=== PATIENT | female | born 1990 | race Caucasian/White ===

== ENCOUNTER → 2018-01-15 17:09 | Outpatient (CLI) | payer OTHER, SELFPAY ==
[2018-01-15 17:29] LABS: Absolute Lymphocyte Count 1.83 X10^3/ul (0.83-4.51); Absolute Neutrophil Count 7.3 X10^3/uL (2.0-7.7); Basophil# 0.02 X10^3/uL; Basophil% 0.2 % (0-1); Eosinophil# 0.07 X10^3/uL; Eosinophils% 0.7 % (0-5); Hematocrit 32.6 % (37-47); Hemoglobin 11.1 g/dl (12.0-15.0); Lymphocyte # 1.83 X10^3/ul (4.0); Lymphocyte % 18.3 % (19-41); Mean Corpuscular Hgb 29.8 pg (27.0-32.0); Mean Corpuscular Volume 87.4 fL (81-99); Mean Platelet Vol. 10.5 fl (6.2-12.0); Monocyte# 0.77 X10^3/uL; Monocyte% 7.7 % (0-10); Neutrophil # 7.28 X10^3/uL (2.7-7.7); Platelet Count 144 K/mm3 (150-450); RBC Distribution Width CV 12.4 % (11.6-14.6); Red Blood Count 3.73 M/mm3 (4.2-5.4)
[2018-01-15 17:31] LABS: POSITIVE COUNT NO; POSITIVE DIFFERENTIAL NO; POSITIVE MORPHOLOGY NO
[2018-01-15 19:08] LABS: HIV - WCH Non-Reactive (Nonreactive); Rubella IgG 149.3 IU/mL
[2018-01-15 20:07] LABS: Chlamydia Trachomatis by PCR Negative (Negative); Neisserai gonorrhoeae by PCR Negative (Negative); Probe Check PASS; Sample Adequacy Control PASS; Specimen Processing Control PASS
[2018-01-17 09:54] LABS: HEPATITIS B SURFACE AG Negative (Negative)
[2018-01-19 01:20] LABS: Rapid Plasmin Reagin (RPR) NONREACTIVE (NONREACTIVE)
== END ==
PROVIDERS: Visit Provider Obstetrics & Gynecology
DX: Z34.00 Encounter for supervision of normal first pregnancy, unspecified trimester (principal)
CPT/HCPCS: 85025; 86592; 86703; 86762; 86850; 86900; 87086; 87088; 87186; 87340; 87491; 87591

== ENCOUNTER → 2018-02-12 18:00 | Outpatient (CLI) | payer OTHER, SELFPAY | PROVIDERS: Visit Provider Obstetrics & Gynecology | DX: Z34.90 Encounter for supervision of normal pregnancy, unspecified, unspecified trimester (principal) | CPT/HCPCS: 87086; 87088; 87186 ==

== ENCOUNTER → 2018-04-09 16:22 | Outpatient (CLI) | payer OTHER, SELFPAY | PROVIDERS: Visit Provider Obstetrics & Gynecology | DX: Z34.90 Encounter for supervision of normal pregnancy, unspecified, unspecified trimester (principal) | CPT/HCPCS: 76805 ==

== ENCOUNTER → 2018-05-21 15:28 | Outpatient (CLI) | payer OTHER, SELFPAY ==
[2018-05-21 16:27] LABS: Absolute Lymphocyte Count 1.43 X10^3/ul (0.83-4.51); Absolute Neutrophil Count 8.4 X10^3/uL (2.0-7.7); Basophil# 0.01 X10^3/uL; Basophil% 0.1 % (0-1); Eosinophil# 0.07 X10^3/uL; Eosinophils% 0.7 % (0-5); Hematocrit 29.3 % (37-47); Hemoglobin 9.9 g/dl (12.0-15.0); Lymphocyte # 1.43 X10^3/ul (4.0); Lymphocyte % 13.3 % (19-41); Mean Corp Hgb Conc 33.8 g/gl (32-36); Mean Corpuscular Hgb 30.1 pg (27.0-32.0); Mean Corpuscular Volume 89.1 fL (81-99); Mean Platelet Vol. 9.5 fl (6.2-12.0); Monocyte# 0.79 X10^3/uL; Monocyte% 7.4 % (0-10); Neutrophil # 8.37 X10^3/uL (2.7-7.7); Neutrophil % 77.8 % (47-70); Platelet Count 151 K/mm3 (150-450); RBC Distribution Width CV 12.2 % (11.6-14.6); RBC Distribution Width SD 39.4 fl (35.1-43.9); Red Blood Count 3.29 M/mm3 (4.2-5.4); White Blood Count 10.7 K/mm3 (4.4-11.0)
[2018-05-21 16:29] LABS: POSITIVE COUNT NO; POSITIVE DIFFERENTIAL NO; POSITIVE MORPHOLOGY NO
[2018-05-21 16:59] LABS: Glucose Challenge Gest 1H 50g 101 mg/dL (70-140)
== END ==
PROVIDERS: Visit Provider Obstetrics & Gynecology
DX: Z34.00 Encounter for supervision of normal first pregnancy, unspecified trimester (principal)
CPT/HCPCS: 36415; 82950; 85025

== ENCOUNTER → 2018-06-18 19:38 | Outpatient (CLI) | payer OTHER, SELFPAY ==
[2018-06-18 20:55] LABS: Protein, Urine (Random) 63.3 mg/dL (<11.9); Protein:Creat Ratio 581 mg/g CRE (0-200)
== END ==
PROVIDERS: Referring Provider Obstetrics & Gynecology; Visit Provider Obstetrics & Gynecology
DX: O12.10 Gestational proteinuria, unspecified trimester (principal); Z3A.00 Weeks of gestation of pregnancy not specified
CPT/HCPCS: 82570; 84156

== ENCOUNTER → 2018-06-20 16:43 | Outpatient (CLI) | payer OTHER, SELFPAY | PROVIDERS: Referring Provider Obstetrics & Gynecology; Visit Provider Obstetrics & Gynecology | DX: Z34.90 Encounter for supervision of normal pregnancy, unspecified, unspecified trimester (principal) | CPT/HCPCS: 87086; 87088; 87186 ==

== ENCOUNTER → 2018-07-02 17:03 | Outpatient (CLI) | payer OTHER, SELFPAY ==
[2018-07-02 18:37] LABS: Protein, Urine (Random) 16.6 mg/dL (<11.9); Protein:Creat Ratio 94 mg/g CRE (0-200)
== END ==
PROVIDERS: Referring Provider Obstetrics & Gynecology; Visit Provider Obstetrics & Gynecology
DX: I10 Essential (primary) hypertension (principal)
CPT/HCPCS: 82570; 84156

== ENCOUNTER → 2018-08-03 18:12 | Outpatient (CLI) | payer OTHER, SELFPAY ==
[2018-08-03 16:23] VITALS: BMI 31.3
== END ==
PROVIDERS: Referring Provider Obstetrics & Gynecology; Visit Provider Obstetrics & Gynecology
DX: Z34.90 Encounter for supervision of normal pregnancy, unspecified, unspecified trimester (principal)
CPT/HCPCS: 87081

== ENCOUNTER 2018-08-13 02:30 | Inpatient (IN) | payer OTHER, SELFPAY ==
[2018-08-08 16:18] VITALS: BMI 31.3
[2018-08-13] MEDS: Lactated Ringers 1,000 ML 50 ML IV ×2 (03:20→11:06)
[2018-08-13 03:35] VITALS: BMI 31.1
[2018-08-13 03:47] LABS: Hematocrit 35.2 % (37-47); Hemoglobin 11.7 g/dl (12.0-15.0); Mean Corp Hgb Conc 33.2 g/gl (32-36); Mean Corpuscular Volume 87.1 fL (81-99); Mean Platelet Vol. 10.8 fl (6.2-12.0); Platelet Count 161 K/mm3 (150-450); RBC Distribution Width CV 13.7 % (11.6-14.6); RBC Distribution Width SD 42.3 fl (35.1-43.9); Red Blood Count 4.04 M/mm3 (4.2-5.4); White Blood Count 10.5 K/mm3 (4.4-11.0)
[2018-08-13 03:48] LABS: Scan Indicated on CBC? Y/N NO
--- NOTE | 2018-08-13 04:10 | PCM.HP.OB ---
- Problem List (1) SROM (spontaneous rupture of membranes) Status: Acute (2) Anemia affecting Status: Acute Qualifiers: (3) Status: Acute Qualifiers: Comment: genetic, carrier, and NTD screening declined (4) Asymptomatic bacteriuria during Status: Acute Comment: 3 positive cultures, recommend daily macrobid (5) Supervision of normal first Status: Acute Qualifiers: Comment: PRR PATY 08/27/18 gender surprise yadirao or joshua Klaus History Date of Admission: 08/13/18 Final PATY: 08/27/18 Gestational age: 38 Weeks and 0 Days History of this : This is a 27 year-old, at 38 weeks gestational age presents IAL with SROM clear fluid. she has had an uncomplicated and denies any vb and admits good fm. she has a history of infertility. Allergies No Known Allergies Allergy (Verified 08/13/18 03:32) Home Medications: Home Medications vitamin,calcium,ztyksqdk-jqtc-wzhgc acid tablet 1 tab PO QDAY 02/12/18 Nitrofurantoin Macrocrystal [Macrodantin] 1 tab PO DAILY 08/13/18 Smoking Status: Former smoker Alcohol: None Number of Fetus(es): 1 Heart Tracin moderate variability reactive no decels category I tracing TOCO Analysis: q 3-5 History Past Pregnancies: Past Pregnancies Delivery Date Name GA/Weeks Outcome Route Weight Gender Labor Length Anesthesia Delivery Location Provider FOB Labs: [facility] & Results 08/13/18 08/13/18 03:20 03:20 WBC 10.5 RBC 4.04 L Hgb 11.7 L Hct 35.2 L MCV 87.1 MCH 29.0 MCHC 33.2 RDW 13.7 RDW Differential 42.3 Plt Count 161 MPV 10.8 Blood Type Pending Antibody Screen Pending Course Did the patient receive Yes care? Labs Blood Type: A RH: POSITIVE RPR/VDRL/Syphilis Nonreactive Rubella status Immune HbSAg Negative Date Done: 01/15/18 Chlamydia Negative Gonorrhea Negative HIV/AIDS Non-Reactive Group B Strep: Negative Current Obstetrical History Gestational Diabetes No Incompetent Cervix No Infertility Yes: chlomid IUGR No Macrosomia No Hypertension/Pre-eclampsia No Placenta Previa/Abruption No PTL/PROM No Uterine anomaly No Oligohydramnios No Polyhydramnios No Multiple gestation No Past Medical History Asthma No Diabetes No Hypertension No Heart disease No Mitral valve prolapse No Neurologic/Seizure disorder/ No Migraines Kidney disease No Liver disease No Varicosities No Clotting disorders/Hx of DVT No Thyroid Dysfunction No Other medical diseases No Psychiatric disorders No Major trauma No Abnormal PAP smear No Sleep apnea No Mammogram in the last 2 years No Social History Marital Status: Alleged father Klaus Hx Smoking No Smoking Status Former smoker How long have you used pt denies substances (years)? What date/time did you last n/a use any of the above? Have you had any previous n/a inpatient or outpatient treatment Expected Infant Delivery Method: Spontaneous Vaginal Review of Systems Constitutional: Denies: Fever, Malaise Eyes: Denies: Blurred vision, Vision Change HEENT: Denies: Head Aches, Visual Changes Cardiovascular: Denies: Chest Pain, Palpitations Respiratory: Denies: Cough, Shortness of Breath, Wheezing Gastrointestinal: Reports: Abdominal Pain. Denies: Diarrhea, Nausea, Vomiting Genitourinary: Denies: Dysuria, Hematuria Gynecological: Reports: Vaginal discharge Musculoskeletal: Denies: Joint Pain, Muscle pain Skin: Denies: Lesions, Rash Neurological: Denies: Blurred vision, Focal weakness, Headaches Psychiatric: Denies: Anxiety, Depression Endocrine: Denies: Heat/ Cold Intolerance Hematologic/ Lymphatic: Denies: Easy Bruising, Easy Bleeding Physical Exam General: Alert, Cooperative, No apparent distress HEENT: Atraumatic, Normocephalic. Negative for: Thyromegaly, Lymphadenopathy Cardiovascular: Regular rate Lungs: Normal air movement Abdomen: Soft, Non Tender, Gravid Neurological: Deep Tendon Reflexes 2+/4 and Symmetrical, Neuro grossly intact. 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 Negative for: Vulvar lesions Estimated gestational size: Appropriate for gestational size Presentation: Cephalic Cervix Dilation (cm): 1.5 Station: -3 Effacement (%): 70 Assessment/Plan All Active Problems (Last Reviewed 08/08/18 @ 16:18 by Bethany Maurer) SROM (spontaneous rupture of membranes) (Acute) Anemia affecting (Acute) (Acute) Asymptomatic bacteriuria during (Acute) Supervision of normal first (Acute) Primary female infertility (Resolved) This is a 27 year-old, , at 38 weeks gestational age with SROM Patient presents IAL, plan expectant management for , pitocin PRN if needed. Pain management: minimal intervention desired. GBS negative. Management of any complications: none I have reviewed the [facility] and made any clinically relevant updates.
--- NOTE | 2018-08-13 04:13 | HP.PCM_ITS ---
- Problem List (1) SROM (spontaneous rupture of membranes) Status: Acute (2) Anemia affecting Status: Acute Qualifiers: (3) Status: Acute Qualifiers: Comment: genetic, carrier, and NTD screening declined (4) Asymptomatic bacteriuria during Status: Acute Comment: 3 positive cultures, recommend daily macrobid (5) Supervision of normal first Status: Acute Qualifiers: Comment: PRR PATY 08/27/18 gender surprise yadirao or joshua Klaus History Date of Admission: 08/13/18 Final PATY: 08/27/18 Gestational age: 38 Weeks and 0 Days History of this : This is a 27 year-old, at 38 weeks gestational age presents IAL with SROM clear fluid. she has had an uncomplicated and denies any vb and admits good fm. she has a history of infertility. Allergies No Known Allergies Allergy (Verified 08/13/18 03:32) Home Medications: Home Medications vitamin,calcium,hxfrzlsp-wyqg-gfglj acid tablet 1 tab PO QDAY 02/12/18 Nitrofurantoin Macrocrystal [Macrodantin] 1 tab PO DAILY 08/13/18 Smoking Status: Former smoker Alcohol: None Number of Fetus(es): 1 Heart Tracin moderate variability reactive no decels category I tracing TOCO Analysis: q 3-5 History Past Pregnancies: Past Pregnancies Delivery Date Name GA/Weeks Outcome Route Weight Gender Labor Length Anesthesia Delivery Location Provider FOB Labs: [facility] & Results 08/13/18 08/13/18 03:20 03:20 WBC 10.5 RBC 4.04 L Hgb 11.7 L Hct 35.2 L MCV 87.1 MCH 29.0 MCHC 33.2 RDW 13.7 RDW Differential 42.3 Plt Count 161 MPV 10.8 Blood Type Pending Antibody Screen Pending Course Did the patient receive Yes care? Labs Blood Type: A RH: POSITIVE RPR/VDRL/Syphilis Nonreactive Rubella status Immune HbSAg Negative Date Done: 01/15/18 Chlamydia Negative Gonorrhea Negative HIV/AIDS Non-Reactive Group B Strep: Negative Current Obstetrical History Gestational Diabetes No Incompetent Cervix No Infertility Yes: chlomid IUGR No Macrosomia No Hypertension/Pre-eclampsia No Placenta Previa/Abruption No PTL/PROM No Uterine anomaly No Oligohydramnios No Polyhydramnios No Multiple gestation No Past Medical History Asthma No Diabetes No Hypertension No Heart disease No Mitral valve prolapse No Neurologic/Seizure disorder/ No Migraines Kidney disease No Liver disease No Varicosities No Clotting disorders/Hx of DVT No Thyroid Dysfunction No Other medical diseases No Psychiatric disorders No Major trauma No Abnormal PAP smear No Sleep apnea No Mammogram in the last 2 years No Social History Marital Status: Alleged father Klaus Hx Smoking No Smoking Status Former smoker How long have you used pt denies substances (years)? What date/time did you last n/a use any of the above? Have you had any previous n/a inpatient or outpatient treatment Expected Infant Delivery Method: Spontaneous Vaginal Review of Systems Constitutional: Denies: Fever, Malaise Eyes: Denies: Blurred vision, Vision Change HEENT: Denies: Head Aches, Visual Changes Cardiovascular: Denies: Chest Pain, Palpitations Respiratory: Denies: Cough, Shortness of Breath, Wheezing Gastrointestinal: Reports: Abdominal Pain. Denies: Diarrhea, Nausea, Vomiting Genitourinary: Denies: Dysuria, Hematuria Gynecological: Reports: Vaginal discharge Musculoskeletal: Denies: Joint Pain, Muscle pain Skin: Denies: Lesions, Rash Neurological: Denies: Blurred vision, Focal weakness, Headaches Psychiatric: Denies: Anxiety, Depression Endocrine: Denies: Heat/ Cold Intolerance Hematologic/ Lymphatic: Denies: Easy Bruising, Easy Bleeding Physical Exam General: Alert, Cooperative, No apparent distress HEENT: Atraumatic, Normocephalic. Negative for: Thyromegaly, Lymphadenopathy Cardiovascular: Regular rate Lungs: Normal air movement Abdomen: Soft, Non Tender, Gravid Neurological: Deep Tendon Reflexes 2+/4 and Symmetrical, Neuro grossly intact. 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 Negative for: Vulvar lesions Estimated gestational size: Appropriate for gestational size Presentation: Cephalic Cervix Dilation (cm): 1.5 Station: -3 Effacement (%): 70 Assessment/Plan All Active Problems (Last Reviewed 08/08/18 @ 16:18 by Bethany Maurer) SROM (spontaneous rupture of membranes) (Acute) Anemia affecting (Acute) (Acute) Asymptomatic bacteriuria during (Acute) Supervision of normal first (Acute) Primary female infertility (Resolved) This is a 27 year-old, , at 38 weeks gestational age with SROM Patient presents IAL, plan expectant management for , pitocin PRN if needed. Pain management: minimal intervention desired. GBS negative. Management of any complications: none I have reviewed the [facility] and made any clinically relevant updates.
[2018-08-13] MEDS: Nalbuphine 10 MG/ML Ampul IV ×2 (12:06→15:02)
[2018-08-13] MEDS: Amnioinfusion- 0.9% NS 1,000 ML IV.SOLN. 500 ML INTRA-UTER ×2 (13:26→19:11)
[2018-08-13] MEDS: Oxytocin 30 units/NS 500 ml 30 UNITS/500 ML IV.SOLN 167 UNITS IV (20:31)
[2018-08-13] MEDS: Oxytocin 30 units/NS 500 ml 30 UNITS/500 ML IV.SOLN 334 UNITS IV (21:01)
[2018-08-13] MEDS: Methylergonovine 0.2 MG/ML Ampul IM (21:03)
[2018-08-13] MEDS: miSOPROStol 200 MCG Tablet 1000 MCG RECTAL (21:06)
[2018-08-13] MEDS: Carboprost Tromethamine 250 MCG/ML Ampul IM (21:06)
[2018-08-13] MEDS: Morphine 4 MG/ML Syringe IV (21:23)
--- NOTE | 2018-08-13 22:15 | PCM.OB.VAG ---
- Problem List (1) SROM (spontaneous rupture of membranes) Status: Acute (2) Anemia affecting Status: Acute Qualifiers: (3) Status: Acute Qualifiers: Comment: genetic, carrier, and NTD screening declined (4) Asymptomatic bacteriuria during Status: Acute Comment: 3 positive cultures, recommend daily macrobid (5) Supervision of normal first Status: Acute Qualifiers: Comment: PRR PATY 08/27/18 gender surprise milo or joshua Klaus Vaginal Delivery Maternal Presentation: Active Labor, Spontaneous Rupture of Membranes 27-year-old at 38 weeks presents with spontaneous rupture of membranes in active labor Amniotic Membrane Rupture Type: Spontaneous at home Amniotic Fluid Description: Clear Final PATY: 08/27/18 Gestational age: 38 Weeks and 0 Days Date of Procedure: 08/13/18 Pre-Operative Diagnosis: In active labor Post-Operative Diagnosis: Same plus recurrent severe heart rate decelerations and moderate PPH Surgery/ Procedure Performed: Vacuum Assisted Vaginal Delivery Type of Anesthesia: Local with 1% lidocaine, Pudendal block with 1% lidocaine Description of Procedure: Patient began pushing and delivered the head in the BRIGITTE presentation. Throughout labor she had periodic severe variable decelerations that were infrequent and managed with position changes and amnioinfusion. However when she was pushing she developed recurrent severe heart rate variable decelerations into the 50s lasting 60-100 seconds at a time and progressive decrease in variability therefore the decision was made to apply a vacuum to shorten the second stage of labor. That was noted to be at the +2 station and patient was pushing well and pelvis was found to be adequate so pudendal block was placed bilaterally after prepping with Betadine 10 cc of lidocaine after the initial spines were identified bilaterally and 1 cm medial and posterior the sacral spinous ligaments were injected with 10 cc of lidocaine and then the perineum was also injected with lidocaine directly. Vacuum was applied and holes were made 3 times with 3 pop offs but significant descent each time, the last pop-off was felt to be due to inability to maintain suction. After the 3 pop offs a right mediolateral episiotomy was cut to hasten delivery and then the 's head delivered atraumatically and a tight nuchal cord x1 was identified and easily reduced over the infant's head. The anterior and posterior shoulders delivered without complication followed by the rest of the and the infant was placed on the maternal abdomen. Delayed cord clamping was employed for approximately 60 seconds. Cord was clamped and cut and gentle traction was applied to the cord and the placenta delivered spontaneously immediately following it was noted to be intact with three-vessel cord. The perineum and vagina were inspected and noted to have a partial third-degree extension of the right medial lateral episiotomy. Patient encountered a moderate hemorrhage which was treated with bimanual uterine massage, Pitocin wide open, IM Methergine and Hemabate and rectal Cytotec. Laceration was repaired with 2-0 PDS reapproximating the anal sphincter capsule and 3-0 Vicryl repeat for the rest of the remaining laceration was repaired in the usual fashion. EBL was 800. Patient and infant tolerated delivery well. Presentation: BRIGITTE Placental Delivery Description: Spontaneous Placenta Disposition: [facility] Cord Vessel Description: 3 Vessels Nuchal Cord Compression: With compression Cord Entanglement: Around neck x 1, tight Drain: Cortes to straight drain Estimated Blood Loss: 800 A gender: Male Episiotomy Description: Right Mediolateral, Perineal Extension/lac, 3rd degree Medications given after delivery: IV Pitocin, IM Methergin, IM Hemabate Complications: - - Moderate hemorrhage
--- NOTE | 2018-08-13 22:21 | OP.PCM_ITS ---
- Problem List (1) SROM (spontaneous rupture of membranes) Status: Acute (2) Anemia affecting Status: Acute Qualifiers: (3) Status: Acute Qualifiers: Comment: genetic, carrier, and NTD screening declined (4) Asymptomatic bacteriuria during Status: Acute Comment: 3 positive cultures, recommend daily macrobid (5) Supervision of normal first Status: Acute Qualifiers: Comment: PRR PATY 08/27/18 gender surprise milo or joshua Lkaus Vaginal Delivery Maternal Presentation: Active Labor, Spontaneous Rupture of Membranes 27-year-old at 38 weeks presents with spontaneous rupture of membranes in active labor Amniotic Membrane Rupture Type: Spontaneous at home Amniotic Fluid Description: Clear Final PATY: 08/27/18 Gestational age: 38 Weeks and 0 Days Date of Procedure: 08/13/18 Pre-Operative Diagnosis: In active labor Post-Operative Diagnosis: Same plus recurrent severe heart rate decelerations and moderate PPH Surgery/ Procedure Performed: Vacuum Assisted Vaginal Delivery Type of Anesthesia: Local with 1% lidocaine, Pudendal block with 1% lidocaine Description of Procedure: Patient began pushing and delivered the head in the BRIGITTE presentation. Throughout labor she had periodic severe variable decelerations that were infrequent and managed with position changes and amnioinfusion. However when s he was pushing she developed recurrent severe heart rate variable decelerations into the 50s lasting 60-100 seconds at a time and progressive decrease in variability therefore the decision was made to apply a vacuum to shorten the second stage of labor. That was noted to be at the +2 station and patient was pushing well and pelvis was found to be adequate so pudendal block was placed bilaterally after prepping with Betadine 10 cc of lidocaine after the initial spines were identified bilaterally and 1 cm medial and posterior the sacral spinous ligaments were injected with 10 cc of lidocaine and then the perineum was also injected with lidocaine directly. Vacuum was applied and holes were made 3 times with 3 pop offs but significant descent each time, the last pop-off was felt to be due to inability to maintain suction. After the 3 pop offs a right mediolateral episiotomy was cut to hasten delivery and then the infant's head delivered atraumatically and a tight nuchal cord x1 was identified and easily reduced over the infant's head. The anterior and posterior shoulders delivered without complication followed by the rest of the and the was placed on the maternal abdomen. Delayed cord clamping was employed for approximately 60 seconds. Cord was clamped and cut and gentle traction was applied to the cord and the placenta delivered spontaneously immediately following it was noted to be intact with three-vessel cord. The perineum and vagina were inspected and noted to have a partial third-degree extension of the right medial lateral episiotomy. Patient encountered a moderate hemorrhage which was treated with bimanual uterine massage, Pitocin wide open, IM Methergine and Hemabate and rectal Cytotec. Laceration was repaired with 2-0 PDS reapproximating the anal sphincter capsule and 3-0 Vicryl repeat for the rest of the remaining laceration was repaired in the usual fashion. EBL was 800. Patient and tolerated delivery well. Presentation: BRIGITTE Placental Delivery Description: Spontaneous Placenta Disposition: [facility] Cord Vessel Description: 3 Vessels Nuchal Cord Compression: With compression Cord Entanglement: Around neck x 1, tight Drain: Cortes to straight drain Estimated Blood Loss: 800 Infant A gender: Male Episiotomy Description: Right Mediolateral, Perineal Extension/lac, 3rd degree Medications given after delivery: IV Pitocin, IM Methergin, IM Hemabate Complications: - - Moderate hemorrhage
[2018-08-13] MEDS: Senna/Docusate Sodium 1 Tablet PO (23:39)
[2018-08-13] MEDS: Naproxen 250 MG Tablet PO (23:40)
[2018-08-14 03:30] VITALS: BP 128/63; PULSE 99; RESP 14; TEMP 36.7
--- NOTE | 2018-08-14 07:40 | PCM.PN.OB ---
Patient Problems: Active and Suspected Problems (Last Reviewed 08/08/18 @ 16:18 by Bethany Maurer) SROM (spontaneous rupture of membranes) (Acute) Subjective: Doing well. No CP, SOB. - Physical Exam General: Alert, Oriented x3 Abdomen: Soft, Non Tender, - - FF below U Vital Signs Temp Pulse Resp BP 98.0 F 99 14 128/63 H 08/14/18 03:30 08/14/18 03:30 08/14/18 03:30 08/14/18 03:30 Oxygen Delivery Method Room Air Weight: 176 lb 3.2 oz Body Mass Index (BMI) 31.1 Intake and Output for Last 24 Hours 08/12/18 08/13/18 08/14/18 23:59 23:59 23:59 Intake Total 3468 / 3468 Output Total 1410 / 1410 300 / 300 Balance 2057 / 2057 -300 / -300 Medical Necessity - Tobacco Use Smoking Status: Former smoker Assessment/Plan All Active Problems (Last Reviewed 08/08/18 @ 16:18 by Bethany Maurer) SROM (spontaneous rupture of membranes) (Acute) Anemia affecting (Acute) (Acute) Asymptomatic bacteriuria during (Acute) Supervision of normal first (Acute) Primary female infertility (Resolved) VAVD PPD#1: Routine care. .
[2018-08-14 08:20] VITALS: BP 127/78; PULSE 88; RESP 16; TEMP 36.3; O2SAT 98
[2018-08-14] MEDS: Senna/Docusate Sodium 1 Tablet PO (08:49)
[2018-08-14] MEDS: Prenatal Vits Tablet 1 TABLET PO (08:49)
[2018-08-14] MEDS: Naproxen 250 MG Tablet PO ×2 (08:50→20:58)
[2018-08-14] MEDS: 0.9% Saline Lock 10 ML Syringe IV (10:15)
[2018-08-14 12:30] VITALS: BP 111/56; PULSE 88; RESP 18; TEMP 36.6; O2SAT 99
[2018-08-14] MEDS: Dibucaine 30 GM Tube 1 APPLIC TOPICAL (13:00)
[2018-08-14] MEDS: Hydrocortisone 2.5% Crm 1 APPLIC TOPICAL (13:01)
[2018-08-14 15:50] VITALS: BP 117/69; PULSE 105; RESP 14; TEMP 36.7; O2SAT 98
--- NOTE | 2018-08-14 16:25 | NURSING ---
pt currently using perineal ice pack and experiencing a decrease in discomfort
[2018-08-14 20:45] VITALS: BP 125/64; PULSE 97; RESP 16; TEMP 36.7; O2SAT 96
[2018-08-15 02:00] VITALS: BP 104/56; PULSE 74; RESP 16; TEMP 36.2; O2SAT 100
--- NOTE | 2018-08-15 08:11 | PCM.PN.OB ---
Patient Problems: Active and Suspected Problems (Last Reviewed 08/08/18 @ 16:18 by Bethany Maurer) SROM (spontaneous rupture of membranes) (Acute) Subjective: No CP, SOB. Doing well - Physical Exam General: Alert, Oriented x3 Abdomen: Soft, Non Tender, - - FF below U Vital Signs Temp Pulse Resp BP Pulse Ox 97.2 F L 74 16 104/56 L 100 08/15/18 02:00 08/15/18 02:00 08/15/18 02:00 08/15/18 02:00 08/15/18 02:00 Oxygen Delivery Method Room Air Weight: 176 lb 3.2 oz Body Mass Index (BMI) 31.1 Intake and Output for Last 24 Hours 08/13/18 08/14/18 08/15/18 23:59 23:59 23:59 Intake Total 3468 / 3468 Output Total 1410 / 1410 300 / 300 Balance 2057 / 2057 -300 / -300 Medical Necessity - Tobacco Use Smoking Status: Former smoker Assessment/Plan All Active Problems (Last Reviewed 08/08/18 @ 16:18 by Bethany Maurer) SROM (spontaneous rupture of membranes) (Acute) Anemia affecting (Acute) (Acute) Asymptomatic bacteriuria during (Acute) Supervision of normal first (Acute) Primary female infertility (Resolved) PPD #2: Routine care. . Plans home today.
--- NOTE | 2018-08-15 08:12 | PCM.DCVAG ---
Additional Instructions: If you experience any of the following, contact your healthcare provider. Bleeding that soaks a pad every hour for 2 hours Fever 100.4 or higher Unrelieved incision or abdominal pain Swelling, redness, discharge or bleeding from your incision or episiotomy site Your incision begins to separate Problems urinating (including inability to urinate or burning while urinating). Visual changes Severe headache Flu-like symptoms Pain or redness in one of both of your breasts Pain, warmth, tenderness or swelling in your legs, especially the calf area Frequent nausea and vomiting Symptoms of depression or anxiety If you experience any of the following, call 911 or go to the nearest Emergency Room. Chest pain Problems breathing Seizure activity Partial or complete paralysis of a body part, slurred speech, weakness or drooping of the face, or a sudden inability to walk or hold your balance Allergies/Adverse Reactions: Allergies No Known Allergies Allergy (Verified 08/13/18 03:32) Medications to take at Discharge vitamin,calcium,rhjiyknc-wwsb-dlqxd acid tablet 1 tab PO QDAY 02/12/18 Nitrofurantoin Macrocrystal [Macrodantin] 1 tab PO DAILY 08/13/18 Primary Care Physician: Care Physician,No Primary [Primary Care Provider] - Test Results: Test results from this visit will be discussed in further detail at your follow-up appointment, if applicable.
--- NOTE | 2018-08-15 08:13 | DCINST_ITS ---
Additional Instructions: If you experience any of the following, contact your healthcare provider. * Bleeding that soaks a pad every hour for 2 hours * Fever 100.4 or higher * Unrelieved incision or abdominal pain * Swelling, redness, discharge or bleeding from your incision or episiotomy site * Your incision begins to separate * Problems urinating (including inability to urinate or burning while urinating). * Visual changes * Severe headache * Flu-like symptoms * Pain or redness in one of both of your breasts * Pain, warmth, tenderness or swelling in your legs, especially the calf area * Frequent nausea and vomiting * Symptoms of depression or anxiety If you experience any of the following, call 911 or go to the nearest Emergency Room. * Chest pain * Problems breathing * Seizure activity * Partial or complete paralysis of a body part, slurred speech, weakness or drooping of the face, or a sudden inability to walk or hold your balance Allergies/Adverse Reactions: Allergies No Known Allergies Allergy (Verified 08/13/18 03:32) Medications to take at Discharge vitamin,calcium,akiqamwl-ptss-ybpon acid tablet 1 tab PO QDAY 02/12/18 Nitrofurantoin Macrocrystal [Macrodantin] 1 tab PO DAILY 08/13/18 Primary Care Physician: Care Physician,No Primary [Primary Care Provider] - Test Results: Test results from this visit will be discussed in further detail at your follow- up appointment, if applicable.
[2018-08-15] MEDS: Naproxen 250 MG Tablet PO (08:28)
[2018-08-15] MEDS: Prenatal Vits Tablet 1 TABLET PO (08:29)
[2018-08-15] MEDS: Senna/Docusate Sodium 1 Tablet PO (08:29)
[2018-08-15 10:18] VITALS: BP 122/72; PULSE 76; RESP 18; TEMP 36.1; O2SAT 99
--- OUTSIDE RECORDS SUMMARY | 2018-11-14 14:29 | XMS RPT_ITS ---
:1990 Author Organization [place] Support Name Relationship Address Phone [facility] Unavailable [address] + [place] [address] CHING PARDEEP Unavailable [address] + [place], [place] [id number] [place] [address] Un[address] + [place] [address] CHING PARDEEP Unavailable [address] + [place], [place] [id number] [place] [address] + [place] [address] CHING PARDEEP Unavailable [address] + [place], [place] [id number] [place] [address] + [place] [address] CHING PARDEEP Unavailable [address] + [place] [address] [facility] Unavailable [address] + [place] [address] CHING PARDEEP Unavailable [address] + [place] [address] [facility] Unavailable [address] + [place] [address] CHING PARDEEP Unavailable [address] + [place] [address] [facility] Unavailable [address] + [place] [address] CHING PARDEEP Unavailable [address] + [place] [address] [facility] Unavailable [address] + [place] [address] PARDEEP FLOWER Unavailable [address] + [place] [address] [facility] Unavailable [address] + [place] [address] PARDEEP FLOWER Unavailable [address] + [place] [address] [facility] Unavailable [address] + [place] [address] PARDEEP FLOWER Unavailable [address] + [place] [address] [facility] Unavailable [address] + [place] [address] PARDEEP FLOWER Unavailable [address] + [place] [address] [facility] Unavailable [address] + [place] [address] PARDEEP FLOWER Unavailable [address] + [place] [address] [facility] Unavailable [address] + [place] [address] PARDEEP FLOWER Unavailable [address] + [place] [address] [facility] Unavailable [address] + [place] [address] PARDEEP FLOWER Unavailable [address] + [place] [address] [facility] Unavailable [address] + [place] [address] PARDEEP FLOWER Unavailable [address] + [place] [address] [facility] Unavailable [address] + [place] [address] CHING, PARDEEP Unavailable [address] + [place] [address] [facility] Unavailable [address] + [place] [address] CHING, PARDEEP Unavailable [address] + [place] [address] [facility] Unavailable [address] + [place] [address] CHING, PARDEEP Unavailable [address] + [place] [address] [facility] Unavailable [address] + [place] [address] CHING, PARDEEP Unavailable [address] + [place] [address] [facility] Unavailable [address] + [place] [address] CHING, PARDEEP Unavailable [address] + [place] [address] [facility] Unavailable / + [place] [address] CHING PARDEEP Unavailable [address] + [place] [address] [facility] Unavailable / + [place] [address] CHING PARDEEP Unavailable [address] + [place] [address] [facility] Unavailable . +. [place] [address] CHING, PARDEEP Unavailable [address] + [place] [address] Care Team Providers Name Role Phone Alix Parra Attending Unavailable Primay Care Physicia, No Referring Unavailable Alix Parra Admitting Unavailable Alix Parra Attending Unavailable Primay Care Physicia, No Primary Care Unavailable Alix Parra Attending Unavailable Primay Care Physicia, No Referring Unavailable Primay Care Physicia, No Primary Care Unavailable Alix Parra Admitting Unavailable Marcanthony, Alix Attending Unavailable Primay Care Physicia, No Primary Care Unavailable Marcanthony, Alix Consulting Unavailable Marcanthony, Alix Admitting Unavailable [place], Marley Attending Unavailable Primay Care Physicia, No Primary Care Unavailable Marcanthony, Alix Consulting Unavailable Marcanthony, Alix Admitting Unavailable [place], Marley Attending Unavailable Primay Care Physicia, No Primary Care Unavailable Marcanthony, Alix Consulting Unavailable Marcanthony, Alix Attending Unavailable Marcanthony, Alix Referring Unavailable Primay Care Physicia, No Primary Care Unavailable Marcanthony, Alix Attending Unavailable Primay Care Physicia, No Referring Unavailable Primay Care Physicia, No Primary Care Unavailable Marcanthony, Ailx Attending Unavailable Primay Care Physicia, No Primary Care Unavailable Marcanthony, Alix Referring Unavailable Marcanthony, Alix Attending Unavailable Primay Care Physicia, No Referring Unavailable Primay Care Physicia, No Primary Care Unavailable Marcanthony, Alix Attending Unavailable Primay Care Physicia, No Primary Care Unavailable Marcanthony, Alix Referring Unavailable Marcanthony, Alix Attending Unavailable Primay Care Physicia, No Referring Unavailable Primay Care Physicia, No Primary Care Unavailable Marcanthony, Alix Attending Unavailable Primay Care Physicia, No Referring Unavailable Primay Care Physicia, No Primary Care Unavailable Marcanthony, Alix Attending Unavailable Marcanthony, Alix Referring Unavailable Primay Care Physicia, No Primary Care Unavailable Marcanthony, Alix Attending Unavailable Primay Care Physicia, No Referring Unavailable Marcanthony, Alix Attending Unavailable Primay Care Physicia, No Primary Care Unavailable Marcanthony, Alix Referring Unavailable Marcanthony, Alix Attending Unavailable Primay Care Physicia, No Referring Unavailable Marcanthony, Alix Attending Unavailable Marcanthony, Alix Referring Unavailable Primay Care Physicia, No Primary Care Unavailable Marcanthony, Alix Attending Unavailable Primay Care Physicia, No Referring Unavailable Marcanthony, Alix Attending Unavailable Marcanthony, Alix Referring Unavailable Primay Care Physicia, No Primary Care Unavailable Marcanthony, Alix Attending Unavailable Primay Care Physicia, No Referring Unavailable Marcanthony, Alix Attending Unavailable Primay Care Physicia, No Referring Unavailable Marcanthony, Alix Attending Unavailable Primay Care Physicia, No Primary Care Unavailable Marcanthony, [employer] Referring Unavailable PROBLEMS PROBLEMS DATE TYPE CONDITION / CODE ATTENDING STATUS SOURCE 08/04/2018 Unknown Z34.90 - Encounter Marcanthony, Active [place] for supervision of [facility] normal , Hospital unspecified, Repository unspecified trimester / Z34.90(ICD-10) 08/04/2018 Unknown O99.89 - Other Marcanthony, Active [place] specified diseases [facility] and conditions Hospital complicating Repository , childbirth and the puerperium / O99.89(ICD-10) 08/04/2018 Unknown R82.71 - Marcanthony, Active [place] Bacteriuria / [facility] R82.71(ICD-10) Hospital Repository 08/04/2018 Unknown O99.013 - Anemia Marcanthony, Active [place] complicating [facility] , third Hospital trimester / Repository O99.013(ICD-10) 08/04/2018 Unknown Z34.03 - Encounter Marcanthony, Active [place] for supervision of [facility] normal first Hospital , third Repository trimester / Z34.03(ICD-10) 08/04/2018 Unknown Z3A.36 - 36 weeks Marcanthony, Active [place] gestation of [facility] / Hospital Z3A.36(ICD-10) Repository 07/17/2018 Unknown Z3A.34 - 34 weeks Marcanthony, Active [place] gestation of [facility] / Hospital Z3A.34(ICD-10) Repository 07/02/2018 Unknown I10 - Essential Marcanthony, Active [place] (primary) [facility] hypertension / Hospital I10(ICD-10) Repository 07/02/2018 Unknown Z3A.32 - 32 weeks Marcanthony, Active [place] gestation of [facility] / Hospital Z3A.32(ICD-10) Repository 06/20/2018 Unknown R80.9 - Marcanthony, Active [place] Proteinuria, [facility] unspecified / Hospital R80.9(ICD-10) Repository 06/19/2018 Unknown O12.10 - Marcanthony, Active [place] Gestational [facility] proteinuria, Hospital unspecified Repository trimester / O12.10(ICD-10) 06/19/2018 Unknown Z23 - Encounter Marcanthony, Active [place] for immunization / [facility] Z23(ICD-10) Hospital Repository 06/19/2018 Unknown Z3A.30 - 30 weeks Marcanthony, Active [place] gestation of [facility] / Hospital Z3A.30(ICD-10) Repository 05/21/2018 Unknown Z34.02 - Encounter Marcantholeg, Active [place] for supervision of [facility] , second Repository trimester / Z34.02(ICD-10) 05/21/2018 Unknown Z3A.21 - 21 weeks Marcanthony, Active [place] gestation of [facility] / Hospital Z3A.21(ICD-10) Repository 05/21/2018 Unknown Z34.00 - Encounter Marcanthony, Active [place] for supervision of [facility] , Repository unspecified trimester / Z34.00(ICD-10) 03/12/2018 Unknown Z3A.16 - 16 weeks Marcanthony, Active [place] gestation of [facility] / Hospital Z3A.16(ICD-10) Repository 02/12/2018 Unknown Z34.01 - Encounter Bariantholeg, Active [place] for supervision of [facility] , first Repository trimester / Z34.01(ICD-10) 02/12/2018 Unknown Z3A.12 - 12 weeks Barianthony, Active [place] gestation of [facility] / Hospital Z3A.12(ICD-10) Repository PROCEDURES PROCEDURES No Procedure Records FoundRESULTS RESULTS DISCHARGE INSTRUCTION Observed: 08/15/2018 Status: F Source: JOSEL[place] 8:13 AM [facility] REPOSITORY [facility] Medical Records Department [address] [place] [id number] Instructions for Home/Discharge Instructions 08/15/18 0812 MR#: [id number] Acct: [id number] Name: GENARO FLOWER Rep #: [id number] : 1990 27 From: Marley Lechuga IT OPERATIONS MANAGERDolores PCP: Care Physician, No Primary Status: ADM IN Additional Instructions: If you experience any of the following, contact your healthcare provider. * Bleeding that soaks a pad every hour for 2 hours * Fever 100.4 or higher * Unrelieved incision or abdominal pain * Swelling, redness, discharge or bleeding from your incision or episiotomy site * Your incision begins to separate * Problems urinating (including inability to urinate or burning while urinating). * Visual changes * Severe headache * Flu-like symptoms * Pain or redness in one of both of your breasts * Pain, warmth, tenderness or swelling in your legs, especially the calf area * Frequent nausea and vomiting * Symptoms of depression or anxiety If you experience any of the following, call 911 or go to the nearest Emergency Room. * Chest pain * Problems breathing * Seizure activity * Partial or complete paralysis of a body part, slurred speech, weakness or drooping of the face, or a sudden inability to walk or hold your balance Allergies/Adverse Reactions: Allergies No Known Allergies Allergy (Verified 08/13/18 03:32) Medications to take at Discharge vitamin,calcium,jnwfjabk-jekz-acmxx acid tablet 1 tab PO QDAY 02/12/18 Nitrofurantoin Macrocrystal [Macrodantin] 1 tab PO DAILY 08/13/18 Primary Care Physician: Care Physician,No Primary [Primary Care Provider] - Test Results: Test results from this visit will be discussed in further detail at your follow-up appointment, if applicable. 08/15/18 08 <Electronically signed by Marley KENNEDY> Date Marley KENNEDY CC: No Primary Care Physician OPERATIVE REPORT Observed: 08/13/2018 Status: F Source: GRENOR[place] 10:21 PM [facility] REPOSITORY [facility] Medical Records Department [address] [place] [address] Operative Report 08/13/18 2215 MR#: [id number] Acct: [id number] Name: GENARO FLOWER Rep #: [id number] : 1990 27 From: Alix Parra MD PCP: Care Physician, No Primary Status: ADM IN Y Location: [id number] - Problem List (1) SROM (spontaneous rupture of membranes) Status: Acute (2) Anemia affecting Status: Acute Qualifiers: (3) Status: Acute Qualifiers: Comment: genetic, carrier, and NTD screening declined (4) Asymptomatic bacteriuria during Status: Acute Comment: 3 positive cultures, recommend daily macrobid (5) Supervision of normal first Status: Acute Qualifiers: Comment: PRR PATY 08/27/18 gender surprise milo or joshua Pardeep Vaginal Delivery Maternal Presentation: Active Labor, Spontaneous Rupture of Membranes 27-year-old at 38 weeks presents with spontaneous rupture of membranes in active labor Amniotic Membrane Rupture Type: Spontaneous at home Amniotic Fluid Description: Clear Final PATY: 08/27/18 Gestational age: 38 Weeks and 0 Days Date of Procedure: 08/13/18 Pre-Operative Diagnosis: In active labor Post-Operative Diagnosis: Same plus recurrent severe heart rate decelerations and moderate PPH Surgery/ Procedure Performed: Vacuum Assisted Vaginal Delivery Type of Anesthesia: Local with 1% lidocaine, Pudendal block with 1% lidocaine Description of Procedure: Patient began pushing and delivered the head in the BRIGITTE presentation. Throughout labor she had periodic severe variable decelerations that were infrequent and managed with position changes and amnioinfusion. However when she was pushing she developed recurrent severe heart rate variable decelerations into the 50s lasting 60-100 seconds at a time and progressive decrease in variability therefore the decision was made to apply a vacuum to shorten the second stage of labor. That was noted to be at the +2 station and patient was pushing well and pelvis was found to be adequate so pudendal block was placed bilaterally after prepping with Betadine 10 cc of lidocaine after the initial spines were identified bilaterally and 1 cm medial and posterior the sacral spinous ligaments were injected with 10 cc of lidocaine and then the perineum was also injected with lidocaine directly. Vacuum was applied and holes were made 3 times with 3 pop offs but significant descent each time, the last pop-off was felt to be due to inability to maintain suction. After the 3 pop offs a right mediolateral episiotomy was cut to hasten delivery and then the 's head delivered atraumatically and a tight nuchal cord x1 was identified and easily reduced over the 's head. The anterior and posterior shoulders delivered without complication followed by the rest of the infant and the was placed on the maternal abdomen. Delayed cord clamping was employed for approximately 60 seconds. Cord was clamped and cut and gentle traction was applied to the cord and the placenta delivered spontaneously immediately following it was noted to be intact with three-vessel cord. The perineum and vagina were inspected and noted to have a partial third-degree extension of the right medial lateral episiotomy. Patient encountered a moderate hemorrhage which was treated with bimanual uterine massage, Pitocin wide open, IM Methergine and Hemabate and rectal Cytotec. Laceration was repaired with 2-0 PDS reapproximating the anal sphincter capsule and 3-0 Vicryl repeat for the rest of the remaining laceration was repaired in the usual fashion. EBL was 800. Patient and infant tolerated delivery well. Presentation: BRIGITTE Placental Delivery Description: Spontaneous Placenta Disposition: [facility] Cord Vessel Description: 3 Vessels Nuchal Cord Compression: With compression Cord Entanglement: Around neck x 1, tight Drain: Cortes to straight drain Estimated Blood Loss: 800 Infant A gender: Male Episiotomy Description: Right Mediolateral, Perineal Extension/lac, 3rd degree Medications given after delivery: IV Pitocin, IM Methergin, IM Hemabate Complications: - - Moderate hemorrhage 08/13/182220 <Electronically signed by Alix Parra MD> Date Alix Parra MD CC: No Primary Care Physician; Alix Parra MD Signed HISTORY AND PHYSICAL Observed: 08/13/2018 Status: F Source: GRENORA EXAM 4:13 AM [facility] REPOSITORY [facility] Medical Records Department [address] [place] [address] History and Physical 08/13/18 0410 MR#: [id number] Acct: [id number] Name: GENARO FLOWER Kostas Rep #: [id number] : 1990 27 From: Alix Parra MD PCP: Care Physician, No Primary Status: ADM IN Y Location: [id number] - Problem List (1) SROM (spontaneous rupture of membranes) Status: Acute (2) Anemia affecting Status: Acute Qualifiers: (3) Status: Acute Qualifiers: Comment: genetic, carrier, and NTD screening declined (4) Asymptomatic bacteriuria during Status: Acute Comment: 3 positive cultures, recommend daily macrobid (5) Supervision of normal first Status: Acute Qualifiers: Comment: PRR PATY 08/27/18 gender surprise milo or joshua Pardeep History Date of Admission: 08/13/18 Final PATY: 08/27/18 Gestational age: 38 Weeks and 0 Days History of this : This is a 27 year-old, at 38 weeks gestational age presents IAL with SROM clear fluid. she has had an uncomplicated and denies any vb and admits good fm. she has a history of infertility. Allergies No Known Allergies Allergy (Verified 08/13/18 03:32) Home Medications: Home Medications vitamin,calcium,mhooywsz-gayb-eiutd acid tablet 1 tab PO QDAY 02/12/18 Nitrofurantoin Macrocrystal [Macrodantin] 1 tab PO DAILY 08/13/18 Smoking Status: Former smoker Alcohol: None Number of Fetus(es): 1 Heart Tracin moderate variability reactive no decels category I tracing TOCO Analysis: q 3-5 History Past Pregnancies: Past Pregnancies Delivery Name GA/Weeks Outcome Route WeiInfant GeLabor LenAnesthesiDelivery Provider FOB Date [facility] a Location Labs: Mom's Labs AND Results WBC 10.5 RBC 4.04 L Course Did the patient receive Yes care? Labs Blood Type: A Current Obstetrical History Gestational Diabetes No Incompetent Cervix No Infertility Yes: chlomid IUGR No Macrosomia No Hypertension/Pre-eclampsia No Placenta Previa/Abruption No PTL/PROM No Uterine anomaly No Oligohydramnios No Polyhydramnios No Multiple gestation No Past Medical History Asthma No Diabetes No Hypertension No Heart disease No Mitral valve prolapse No Neurologic/Seizure disorder/ No Migraines Kidney disease No Liver disease No Varicosities No Clotting disorders/Hx of DVT No Thyroid Dysfunction No Other medical diseases No Psychiatric disorders No Major trauma No Abnormal PAP smear No Sleep apnea No Mammogram in the last 2 years No Social History Marital Status: Alleged father Pardeep Hx Smoking No Smoking Status Former smoker How long have you used pt denies substances (years)? What date/time did you last n/a use any of the above? Have you had any previous n/a inpatient or outpatient treatment Expected Infant Delivery Method: Spontaneous Vaginal Review of Systems Constitutional: Denies: Fever, Malaise Eyes: Denies: Blurred vision, Vision Change HEENT: Denies: Head Aches, Visual Changes Cardiovascular: Denies: Chest Pain, Palpitations Respiratory: Denies: Cough, Shortness of Breath, Wheezing Gastrointestinal: Reports: Abdominal Pain. Denies: Diarrhea, Nausea, Vomiting Genitourinary: Denies: Dysuria, Hematuria Gynecological: Reports: Vaginal discharge Musculoskeletal: Denies: Joint Pain, Muscle pain Skin: Denies: Lesions, Rash Neurological: Denies: Blurred vision, Focal weakness, Headaches Psychiatric: Denies: Anxiety, Depression Endocrine: Denies: Heat/ Cold Intolerance Hematologic/ Lymphatic: Denies: Easy Bruising, Easy Bleeding Physical Exam General: Alert, Cooperative, No apparent distress HEENT: Atraumatic, Normocephalic. Negative for: Thyromegaly, Lymphadenopathy Cardiovascular: Regular rate Lungs: Normal air movement Abdomen: Soft, Non Tender, Gravid Neurological: Deep Tendon Reflexes 2+/4 and Symmetrical, Neuro grossly intact. Negative for: Clonus RESIDENTIAL SOLAR CONSULTANT: Normal external genitalia. Negative for: Vulvar lesions Estimated gestational size: Appropriate for gestational size Presentation: Cephalic Cervix Dilation (cm): 1.5 Station: -3 Effacement (%): 70 Assessment/Plan All Active Problems (Last Reviewed 08/08/18 @ 16:18 by Bethany Maurer) SROM (spontaneous rupture of membranes) (Acute) Anemia affecting (Acute) (Acute) Asymptomatic bacteriuria during (Acute) Supervision of normal first (Acute) Primary female infertility (Resolved) This is a 27 year-old, , at 38 weeks gestational age with SROM Patient presents IAL, plan expectant management for , pitocin PRN if needed. Pain management: minimal intervention desired. GBS negative. Management of any complications: none I have reviewed the [facility] and made any clinically relevant updates. 08/13/18 0413 <Electronically signed by Alix Parra MD> Date Alix Parra MD Cosigner Signature: Date (if applicable) CC: No Primary Care Physician; Alix Parra MD Signed CBC-COMPLETE BLOOD CNT Collected: 08/13/2018 Status: F Source: JOSELIN NO DIFF 3:20 AM [facility] REPOSITORY TYPE CODE TESTS RESULT OUT OF RANGE REFERENCE UNITS LAB L100.1000 4.4-11.0 K/mm3 Normal WBC 10.5 LAB L100.1200 4.2-5.4 M/mm3 Low RBC 4.04 LAB L100.1300 12.0-15.0 g/dl Low HGB 11.7 LAB L100.1400 37-47 % Low HCT 35.2 LAB L100.1500 81-99 fL Normal MCV 87.1 LAB L100.1600 27.0-32.0 pg Normal MCH 29.0 LAB L100.1700 32-36 g/gl Normal MCHC 33.2 LAB L100.1810 11.6-14.6 % Normal RDW CV 13.7 LAB L100.1820 35.1-43.9 fl Normal RDW SD 42.3 LAB L100.1900 150-450 K/mm3 Normal PLT 161 LAB L100.2000 6.2-12.0 fl Normal MPV 10.8 Performed By: #### L100.0500 #### [facility] [address] [place], [place], [id number] TYPE AND SCREEN Collected: 08/13/2018 Status: F Source: JOSELIN 3:20 AM [facility] REPOSITORY Order Comment: Reason for Type AND Screen/Red Cells: ROUTINE TYPE CODE TESTS RESULT OUT OF RANGE REFERENCE UNITS LAB B10.0800 A Normal BLOOD TYPE GEL POSITIVE LAB B100.4000 Normal Antibody NEGATIVE Screen Performed By: #### B101.7450 #### [facility] [address] [place], [address] FLAVORER OFFICE VISIT Observed: 08/08/2018 Status: F Source: JOSELIN REPORT 11:28 PM [facility] REPOSITORY [facility] [place] 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 Required: No Accompanied by: Is patient in pain?: No Allergies No Known Allergies Allergy (Verified 08/08/18 16:18) Medications vitamin,calcium,wpnsqfki-cpgk-bttgz acid tablet 1 tab PO QDAY 02/12/18 [History Confirmed 08/08/18] Last Menstral Period: 11/20/17 Zika: Zika virus screening: Negative : No PFSH PFSH Social History Smoking Status: Never smoker alcohol intake: never substance use type: does not use caffeine: Yes what type of physical activity do you participate in: none seatbelt use: always do you feel safe at home: Yes 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 OB Visit PATY Calculator Estimated Delivery Date 08/27/18 Based on LMP (certain) 11/20/17 Current WG 37w 2d Number 1 Expected Delivery Route/Plan Specific Issue/Plans flu vaccine: given minichart given: yes tdap vaccine: given rhogam: na LARC form signed: declined labor support person: pain management: minimal intervention cut cord/dad catch: cord : yes PP control planned: special requests: minima intervention Initial Weight: 147 lb Date Weight BP Urine PrFHR FuHt Pres MoCTX DilationFetal StVisit NoProviderComments E ot v te GA G Effac lucose ed Visit Notes Visit Date: 08/08/18 no vb lof good fm no regular ctx Alix Parra MD on 08/08/18 Visit Date: 08/03/18 no vb lof good fm n oregualr ctx. repeta bps were normal range last two appointments but are not populating into flowsheet. Alix Parra MD on 08/03/18 Visit Date: 07/16/18 no vb lof good fm no regular ctx. on daily antibiotic Alix Parra MD on 07/16/18 Visit Date: 07/02/18 no vb lof good fm no reular ctx Alix Parra MD on 07/02/18 Visit Date: 06/18/18 no vb lof good fm no regular ctx nl cbc gct. Alix Parra MD on 06/18/18 Visit Date: 05/21/18 no vb lof cramping cbc gct tdap today Alix Parra MD on 05/21/18 Visit Date: 04/20/18 no vb lof good fm no regular ctx Alix Parra MD on 04/20/18 Visit Date: 03/12/18 no vb lof no cramping Alix Parra MD on 03/12/18 Visit Date: 02/12/18 no vb signfiicant cramping Alix Parra MD on 02/12/18 Visit Date: 01/15/18 No visit notes to display ACOG First Trimester First Trimester: Desire for , Alcohol, Tobacco Cessation, Illicit/Recreational Drug/Substance Use, Intimate Partner Violence, Barriers to care, Unstable Housing, Communication Barriers, Environmental/Work Hazards, Anticipated Course of Care, Toxoplasmosis Precations, Use of Any medications, Sexual activity, Exercise, Dental Care, Sauna/Hot tub use, Seat Belt use, Childbirth classes/Hospital facilities, , Travel, Indications for US and Screening for Aneuploidy Diagnostics Diagnostics Labs Hct 29.3 % (37-47) L 05/21/18 Hgb 9.9 g/dl (12.0-15.0) L 05/21/18 Obstetrics Ultrasound 04/09/18 Glucose 1 Hr 50 gm 101 mg/dL (70-140) 05/21/18 Group B Strep DNA Cancelled 08/03/18 Details: HIV: Urine Culture: Sequential Screen: NIPT Screen: Results [id number] Office Urine Glucose Negative Last Edit by Bethany Maurer on 08/08/18 16:14 Office Urine Protein Negative Last Edit by Bethany Maurer on 08/08/18 16:14 Assessment AND Plan Problems 1. Anemia affecting in third trimester O99.013 2. Asymptomatic bacteriuria during O99.89; R82.71 3 positive cultures, recommend daily macrobid 3. 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 Encounter for supervision of normal first in third trimester Z34.03 PRR PATY 08/27/18 gender surprise milo or joshua Pardeep Plan movement and labor precautions reviewed. ACOG trimester education reviewed and updated. see problem list details for updated plan management information and see below for orders placed at this visit. [place] appropriate handout given. Orders Orders: Coding Level of Care Code Off vis,est,level 3 Diagnoses Anemia affecting in third trimester O99.013 Trimester: third trimester Asymptomatic bacteriuria during O99.89; R82.71 37 weeks gestation of Z3A.37 Weeks of gestation: 37 weeks Encounter for supervision of normal first in third trimester Z34.03 Trimester: third trimester 08/08/182327 <Electronically signed by Alix Parra MD> Date Alix Parra MD Cosigner Signature: Date (if applicable) CC: Observed: 08/03/2018 Status: F Source: JOSELIN CULTURE, GROUP B 6:13 PM [facility] STREPTOCOCCUS REPOSITORY GRISEL Culture Group B Beta Streptococcus is not isolated. Performed By: #### M100.1800 #### [facility] [place], [address] FLAVORER OFFICE VISIT Observed: 08/03/2018 Status: F Source: JOSELIN REPORT 4:54 PM [facility] REPOSITORY [facility] [address] [place] [address] OFFICE VISIT Date of Service: 08/03/18 MR#: [id number] Acct: [id number] Name: GENARO FLOWER Rep #: [id number] : 1990 Provider: Alix Parra MD Age/Sex: 27/F [facility] [facility] Status: Signed Intake Vital Signs08/03/18 Height 5 ft 3 in 08/03/18 Weight: 177 lb 08/03/18 Body Mass Index (BMI) 31.3 08/03/18 Blood Pressure 116/80 08/03/18 Body Mass Index (BMI) 30.4 Intake Visit Reasons: 36 weeks Chief Complaint: est ob Agricultural Plow Operator Required: No Is patient in pain?: No Allergies No Known Allergies Allergy (Verified 08/03/18 16:23) Medications vitamin,calcium,fsfxzmoc-erdk-crymf acid tablet 1 tab PO QDAY 02/12/18 [History Confirmed 08/03/18] Last Menstral Period: 11/20/17 Zika: Zika virus screening: Negative : No PFSH PFSH Social History Smoking Status: Never smoker alcohol intake: never substance use type: does not use caffeine: Yes what type of physical activity do you participate in: none seatbelt use: always do you feel safe at home: Yes 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 OB Visit PATY Calculator Estimated Delivery Date 08/27/18 Based on LMP (certain) 11/20/17 Current WG 36w 4d Number 1 Expected Delivery Route/Plan Specific Issue/Plans flu vaccine: given minichart given: yes tdap vaccine: given rhogam: na LARC form signed: declined labor support person: pain management: minimal intervention cut cord/dad catch: cord : yes PP control planned: special requests: minima intervention Initial Weight: 147 lb Date Weight BP Urine PrFHR FuHt Pres MoCTX DilationFetal StVisit NoProviderComments E ot v te [place] G Effac lucose ed Visit Notes Visit Date: 08/03/18 no vb lof good fm n oregualr ctx. repeta bps were normal range last two appointments but are not populating into flowsheet. Alix Parra MD on 08/03/18 Visit Date: 07/16/18 no vb lof good fm no regular ctx. on daily antibiotic Alix Parra MD on 07/16/18 Visit Date: 07/02/18 no vb lof good fm no reular ctx Alix Parra MD on 07/02/18 Visit Date: 06/18/18 no vb lof good fm no regular ctx nl cbc gct. Alix Parra MD on 06/18/18 Visit Date: 05/21/18 no vb lof cramping cbc gct tdap today Alix Parra MD on 05/21/18 Visit Date: 04/20/18 no vb lof good fm no regular ctx Alix Parra MD on 04/20/18 Visit Date: 03/12/18 no vb lof no cramping Alix Parra MD on 03/12/18 Visit Date: 02/12/18 no vb signfiicant cramping Alix Parra MD on 02/12/18 Visit Date: 01/15/18 No visit notes to display ACOG First Trimester First Trimester: Desire for , Alcohol, Tobacco Cessation, Illicit/Recreational Drug/Substance Use, Intimate Partner Violence, Barriers to care, Unstable Housing, Communication Barriers, Environmental/Work Hazards, Anticipated Course of Care, Toxoplasmosis Precations, Use of Any medications, Sexual activity, Exercise, Dental Care, Sauna/Hot tub use, Seat Belt use, Childbirth classes/Hospital facilities, , Travel, Indications for US and Screening for Aneuploidy Diagnostics Diagnostics Labs Hct 29.3 % (37-47) L 05/21/18 Hgb 9.9 g/dl (12.0-15.0) L 05/21/18 Obstetrics Ultrasound 04/09/18 Glucose 1 Hr 50 gm 101 mg/dL (70-140) 05/21/18 Details: HIV: Urine Culture: Sequential Screen: NIPT Screen: Assessment AND Plan Problems 1. Anemia affecting in third trimester O99.013 2. Asymptomatic bacteriuria during O99.89; R82.71 3 positive cultures, recommend daily macrobid 3. 36 weeks gestation of Z3A.36 genetic, carrier, and NTD screening declined 4. Encounter for supervision of normal first in third trimester Z34.03 PRR PATY 08/27/18 gender surprise milo or joshua Pardeep Plan movement and labor precautions reviewed. ACOG trimester education reviewed and updated. see problem list details for updated plan management information and see below for orders placed at this visit. [place] appropriate handout given. Orders Orders: Coding Level of Care Code OB Routine Diagnoses Anemia affecting in third trimester O99.013 Trimester: third trimester Asymptomatic bacteriuria during O99.89; R82.71 36 weeks gestation of Z3A.36 Weeks of gestation: 36 weeks Encounter for supervision of normal first in third trimester Z34.03 Trimester: third trimester 08/03/18 1654 <Electronically signed by Alix Parra MD> Date Alix Parra MD Cosigner Signature: Date (if applicable) CC: FLAVORER OFFICE VISIT Observed: 07/16/2018 Status: F Source: JO[place] REPORT 4:02 PM [facility] REPOSITORY [facility] 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 Operator Required: No Is patient in pain?: No Allergies No Known Allergies Allergy (Verified 07/16/18 15:23) Medications vitamin,calcium,ybrmnafo-rocf-bdwbf acid tablet 1 tab PO QDAY 02/12/18 [History Confirmed 07/16/18] Last Menstral Period: 11/20/17 Zika: Zika virus screening: Negative : No PFSH PFSH Social History Smoking Status: Never smoker alcohol intake: never substance use type: does not use caffeine: Yes what type of physical activity do you participate in: none seatbelt use: always do you feel safe at home: Yes 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 OB Visit PATY Calculator Estimated Delivery Date 08/27/18 Based on LMP (certain) 11/20/17 Current WG 34w 0d Number 1 Expected Delivery Route/Plan Specific Issue/Plans flu vaccine: given minichart given: yes tdap vaccine: given rhogam: na LARC form signed: declined labor support person: pain management: minimal intervention cut cord/dad catch: cord : yes PP control planned: special requests: minima intervention Initial Weight: 147 lb Date Weight BP Urine PrFHR FuHt Pres MoCTX DilationFetal StVisit NoProviderComments E ot v te [place] G Effac lucose ed Visit Notes Visit Date: 07/16/18 no vb lof good fm no regular ctx. on daily antibiotic Alix Parra MD on 07/16/18 Visit Date: 07/02/18 no vb lof good fm no reular ctx Alix Parra MD on 07/02/18 Visit Date: 06/18/18 no vb lof good fm no regular ctx nl cbc gct. Alix Parra MD on 06/18/18 Visit Date: 05/21/18 no vb lof cramping cbc gct tdap today Alix Parra MD on 05/21/18 Visit Date: 04/20/18 no vb lof good fm no regular ctx Alix Parra MD on 04/20/18 Visit Date: 03/12/18 no vb lof no cramping Alix Parra MD on 03/12/18 Visit Date: 02/12/18 no vb signfiicant enemping Alix Parra MD on 02/12/18 Visit Date: 01/15/18 No visit notes to display ACOG First Trimester First Trimester: Desire for , Alcohol, Tobacco Cessation, Illicit/Recreational Drug/Substance Use, Intimate Partner Violence, Barriers to care, Unstable Housing, Communication Barriers, Environmental/Work Hazards, Anticipated Course of Care, Toxoplasmosis Precations, Use of Any medications, Sexual activity, Exercise, Dental Care, Sauna/Hot tub use, Seat Belt use, Childbirth classes/Hospital facilities, , Travel, Indications for US and Screening for Aneuploidy Diagnostics Diagnostics Labs Blood Type A POSITIVE 01/15/18 Antibody Screen NEGATIVE 01/15/18 Hct 29.3 % (37-47) L 05/21/18 Hgb 9.9 g/dl (12.0-15.0) L 05/21/18 Obstetrics Ultrasound 04/09/18 Rubella IgG Antibody 149.3 IU/mL 01/15/18 RPR NONREACTIVE (NONREACTIVE) 01/15/18 Hep Bs Antigen Negative (Negative) 01/15/18 Chlam trachomat DNA PCR Negative (Negative) 01/15/18 N.gonorrhoeae DNA (PCR) Negative (Negative) 01/15/18 Glucose 1 Hr 50 gm 101 mg/dL (70-140) 05/21/18 Details: HIV: Urine Culture: Sequential Screen: NIPT Screen: Assessment AND Plan Problems 1. Anemia affecting in third trimester O99.013 2. Asymptomatic bacteriuria during O99.89; R82.71 3 positive cultures, recommend daily macrobid 3. 34 weeks gestation of Z3A.34 genetic and NTD screening counseled 4. Encounter for supervision of normal first in third trimester Z34.03 PRR PATY 08/27/18 gender surprise milo or joshua Pardeep Plan movement and labor precautions reviewed. ACOG trimester education reviewed and updated. see problem list details for updated plan management information and see below for orders placed at this visit. [place] appropriate handout given. Coding Level of Care Code OB Routine Diagnoses Anemia affecting in third trimester O99.013 Trimester: third trimester Asymptomatic bacteriuria during O99.89; R82.71 34 weeks gestation of Z3A.34 Weeks of gestation: 34 weeks Encounter for supervision of normal first in third trimester Z34.03 Trimester: third trimester 07/16/18 1602 <Electronically signed by Alix Parra MD> Date Alix Parra MD Cosign Signature: Date (if applicable) CC: FLAVORER OFFICE VISIT Observed: 07/02/2018 Status: F Source: [place] REPORT 4:14 PM [facility] [place] 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 Operator Required: No Is patient in pain?: No Allergies No Known Allergies Allergy (Verified 07/02/18 15:51) Medications vitamin,calcium,kpcwpmix-vpad-eekjo acid tablet 1 tab PO QDAY 02/12/18 [History Confirmed 07/02/18] Last Menstral Period: 11/20/17 Zika: Zika virus screening: Negative : No PFSH PFSH Social History Smoking Status: Never smoker alcohol intake: never substance use type: does not use caffeine: Yes what type of physical activity do you participate in: none seatbelt use: always do you feel safe at home: Yes 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 OB Visit PATY Calculator Estimated Delivery Date 08/27/18 Based on LMP (certain) 11/20/17 Current WG 32w 0d Number 1 Expected Delivery Route/Plan Specific Issue/Plans flu vaccine: given minichart given: yes tdap vaccine: given rhogam: na LARC form signed: declined labor support person: pain management: cut cord/dad catch: [] : [] PP control planned: [] special requests: [] Initial Weight: 147 lb Date Weight BP Urine PrFHR FuHt Pres MoCTX DilationFetal StVisit NoProviderComments E ot v te [place] G Effac lucose ed Visit Notes Visit Date: 07/02/18 no vb lof good fm no reular ctx Alix Parra MD on 07/02/18 Visit Date: 06/18/18 no vb lof good fm no regular ctx nl cbc gct. Alix Parra MD on 06/18/18 Visit Date: 05/21/18 no vb lof cramping cbc gct tdap today Alix Parra MD on 05/21/18 Visit Date: 04/20/18 no vb lof good fm no regular ctx Alix Parra MD on 04/20/18 Visit Date: 03/12/18 no vb lof no cramping Alix Parra MD on 03/12/18 Visit Date: 02/12/18 no vb signfiicant cramping Alix Parra MD on 02/12/18 Visit Date: 01/15/18 No visit notes to display ACOG First Trimester First Trimester: Desire for , Alcohol, Tobacco Cessation, Illicit/Recreational Drug/Substance Use, Intimate Partner Violence, Barriers to care, Unstable Housing, Communication Barriers, Environmental/Work Hazards, Anticipated Course of Care, Toxoplasmosis Precations, Use of Any medications, Sexual activity, Exercise, Dental Care, Sauna/Hot tub use, Seat Belt use, Childbirth classes/Hospital facilities, , Travel, Indications for US and Screening for Aneuploidy Diagnostics Diagnostics Labs Blood Type A POSITIVE 01/15/18 Antibody Screen NEGATIVE 01/15/18 Hct 29.3 % (37-47) L 05/21/18 Hgb 9.9 g/dl (12.0-15.0) L 05/21/18 Obstetrics Ultrasound 04/09/18 Rubella IgG Antibody 149.3 IU/mL 01/15/18 RPR NONREACTIVE (NONREACTIVE) 01/15/18 Hep Bs Antigen Negative (Negative) 01/15/18 Chlam trachomat DNA PCR Negative (Negative) 01/15/18 N.gonorrhoeae DNA (PCR) Negative (Negative) 01/15/18 Glucose 1 Hr 50 gm 101 mg/dL (70-140) 05/21/18 Details: HIV: Urine Culture: Sequential Screen: NIPT Screen: Assessment AND Plan Problems 1. Anemia affecting in third trimester O99.013 2. Asymptomatic bacteriuria during O99.89; R82.71 3 positive cultures, recommend daily macrobid 3. 32 weeks gestation of Z3A.32 genetic and NTD screening counseled 4. Encounter for supervision of normal first in third trimester Z34.03 PRR PATY 08/27/18 gender surprise milo or joshua Pardeep Plan movement and labor precautions reviewed. ACOG trimester education reviewed and updated. see problem list details for updated plan management information and see below for orders placed at this visit. [place] appropriate handout given. Orders Orders: Coding Level of Care Code OB Routine Diagnoses Anemia affecting in third trimester O99.013 Asymptomatic bacteriuria during O99.89; R82.71 32 weeks gestation of Z3A.32 Weeks of gestation: 32 weeks Encounter for supervision of normal first in third trimester Z34.03 07/02/18 1614 <Electronically signed by Alix Parra MD> Date Alix Parra MD Cosigner Signature: Date (if applicable) CC: PROTEIN+CREATININE Collected: Status: F Source: [facility],URINE 07/02/2018 12:00 AM [facility] REPOSITORY TYPE CODE TESTS RESULT OUT OF RANGE REFERENCE UNITS LAB L501.1200 NO RANGE EST. mg/dL Normal UR CREAT 177.00 LAB L501.1930 <11.9 mg/dL High 16.6 PROTEIN,UR.R AN. LAB L501.1940 0-200 mg/g CRE Normal PROT:CRE 94 RATIO Performed By: #### L501.0900 #### [facility] [address] [place], [address] OFFICE VISIT REPORT Observed: 06/24/2018 Status: F Source: JOSELIN 1:34 AM [facility] [address] [place] [address] OFFICE VISIT Date of Service: 06/20/18 MR#: [id number] Acct: [id number] Patient: GENARO FLOWER Rep #: [id number] : 1990 Provider: Alix Parra MD Age/Sex: 27/F [place] [facility] [place]: Signed Intake Vital Signs06/20/18 Height 5 ft 3 in Intake Visit Reasons: UA Chief Complaint: UA Agricultural Plow Operator Required: No Allergies No Known Allergies Allergy (Verified 06/18/18 15:58) Medications vitamin,calcium,crkneoxk-ckho-jwqkg acid tablet 1 tab PO QDAY 02/12/18 [History Confirmed 06/18/18] ampicillin 500 mg capsule 500 mg PO Q8H 5 Days #15 cap 06/20/18 [Rx] nitrofurantoin macrocrystal 100 mg capsule 100 mg PO DAILY #30 cap 06/20/18 [Rx] Results BMSUA Office Urine Color YELLOW Last Edit by Jaja Richardson on 06/20/18 09:43 Office Urine Clarity Cloudy Last Edit by Jaja Richardson on 06/20/18 09:43 Assessment AND Plan Orders Orders: Medications New: nitrofurantoin macrocrystal hprc535 mg PO DAILY 30 caps 4RF BRENT Simmons with food (meal or snack) 06/24/18 0134 <Electronically signed by Alix Parra MD> Date Alix Parra MD Cosigner Signature: Date (if applicable) CC: Observed: 06/20/2018 Status: F Source: JOSELIN CULTURE, URINE 5:53 PM [facility] REPOSITORY Urine Culture ORGANISM 1: Presumptive E. coli [place] Count >100,000 Presumptive E. coli: REACTION Amoxacillin/Clavulanic Acid $ <=2 S Ampicillin $ <=2 S Ampicillin/Sulbactam $ <=2 S Cefazolin $ <=4 S Cefepime $ <=1 S Ceftriaxone $ <=1 S Ciprofloxacin $ <=0.25 S ESBL - Ertapenim $$$ <=0.5 S Gentamicin $ <=1 S Imipenem *NF <=0.25 S Levofloxacin $ <=0.12 S Nitrofurantoin $ <=16 S Piperacillin/Tazobactam $$ <=4 S Tobramycin $ <=1 S Trimethoprim/Sulfametho $ <=20 S (NF) indicates non-formulary drug at [facility]. Approval by Infectious Disease Specialist required before non-formulary drugs may be ordered and/or dispensed. Performed By: #### M100.0650 #### [facility] [address] [place], [address] FLAVORER OFFICE VISIT Observed: 06/18/2018 Status: F Source: GR[place] REPORT 4:46 PM [facility] REPOSITORY [facility] [address] [place] [address] OFFICE VISIT Date of Service: 06/18/18 MR#: [id number] Acct: [id number] Name: CHINGGENARO FISHMAN Kostas Rep #: [id number] : 1990 Provider: Alix Parra MD Age/Sex: 27/F [place] [facility] [place]: Signed with Addenda ADDENDUM by Jaja Richardson on 06/18/18 at 1646 OFFICE PROCEDURES Office Procedure Documentation entered by Jaja Richardson 06/18/18 16:46: Office Meds Flucelvax Quad [id number] (PF) Performing Provider: Alix Parra MD Administered by: Jaja Richardson on 06/18/18 16:45 Dose Route Admin Location Lot Number Expiration Date VTC [employer] 0.5 mL IM right IM [id number] 02/24/19 53455-874-44 [facility] 06/18/18 1646 <Electronically signed by Jaja Richardson > Date Jaja Richardson cc: * Signed Intake Vital Signs06/18/18 Height 5 ft 3 in 06/18/18 Weight: 166 lb 06/18/18 Body Mass Index (BMI) 29.4 06/18/18 Blood Pressure 118/80 Intake Visit Reasons: 30 weeks Agricultural Plow Operator Required: No Is patient in pain?: No Allergies No Known Allergies Allergy (Verified 06/18/18 15:58) Medications vitamin,calcium,sxcuwqyz-adym-vlryz acid tablet 1 tab PO QDAY 02/12/18 [History Confirmed 06/18/18] Last Menstral Period: 11/20/17 Zika: Zika virus screening: Negative : No PFSH PFSH Social History Smoking Status: Never smoker alcohol intake: never substance use type: does not use caffeine: Yes what type of physical activity do you participate in: none seatbelt use: always do you feel safe at home: Yes 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 OB Visit PATY Calculator Estimated Delivery Date 08/27/18 Based on LMP (certain) 11/20/17 Current WG 30w 0d Number 1 Expected Delivery Route/Plan Specific Issue/Plans flu vaccine: given minichart given: yes tdap vaccine: given rhogam: na LARC form signed: declined labor support person: pain management: cut cord/dad catch: [] : [] PP control planned: [] special requests: [] Initial Weight: 147 lb Date Weight BP Urine PrFHR FuHt Pres MoCTX DilationFetal StVisit NoProviderComments E ot v te [place] G Effac lucose ed Visit Notes Visit Date: 06/18/18 no vb lof good fm no regular ctx nl cbc gct. Alix Parra MD on 06/18/18 Visit Date: 05/21/18 no vb lof cramping cbc gct tdap today Alix Parra MD on 05/21/18 Visit Date: 04/20/18 no vb lof good fm no regular ctx Alix Parra MD on 04/20/18 Visit Date: 03/12/18 no vb lof no cramping Alix Parra MD on 03/12/18 Visit Date: 02/12/18 no vb signfiicant cramping Alix Parra MD on 02/12/18 Visit Date: 01/15/18 No visit notes to display ACOG First Trimester First Trimester: Desire for , Alcohol, Tobacco Cessation, Illicit/Recreational Drug/Substance Use, Intimate Partner Violence, Barriers to care, Unstable Housing, Communication Barriers, Environmental/Work Hazards, Anticipated Course of Care, Toxoplasmosis Precations, Use of Any medications, Sexual activity, Exercise, Dental Care, Sauna/Hot tub use, Seat Belt use, Childbirth classes/Hospital facilities, , Travel, Indications for US and Screening for Aneuploidy Diagnostics Diagnostics Labs Blood Type A POSITIVE 01/15/18 Antibody Screen NEGATIVE 01/15/18 Hct 29.3 % (37-47) L 05/21/18 Hgb 9.9 g/dl (12.0-15.0) L 05/21/18 Obstetrics Ultrasound 04/09/18 Rubella IgG Antibody 149.3 IU/mL 01/15/18 RPR NONREACTIVE (NONREACTIVE) 01/15/18 Hep Bs Antigen Negative (Negative) 01/15/18 Chlam trachomat DNA PCR Negative (Negative) 01/15/18 N.gonorrhoeae DNA (PCR) Negative (Negative) 01/15/18 Glucose 1 Hr 50 gm 101 mg/dL (70-140) 05/21/18 Details: HIV: Urine Culture: Sequential Screen: NIPT Screen: Results [id number] Office Urine Glucose Negative Last Edit by Zari Yao on 06/18/18 16:05 Office Urine Protein 1+ Last Edit by Zari Yao on 06/18/18 16:05 Assessment AND Plan Problems 1. Anemia affecting in third trimester O99.013 2. 30 weeks gestation of Z3A.30 genetic and NTD screening counseled 3. Asymptomatic bacteriuria during O99.89; R82.71 macrobid, has had 2 positive cultures both asymptomatic, 4. Encounter for supervision of normal first in third trimester Z34.03 PRR PATY 08/27/18 gender surprise Pardeep Plan movement and labor precautions reviewed. ACOG trimester education reviewed and updated. see problem list details for updated plan management information and see below for orders placed at this visit. GA appropriate handout given. Orders Orders: Coding Level of Care Code OB Routine Diagnoses Anemia affecting in third trimester O99.013 Trimester: third trimester 30 weeks gestation of Z3A.30 Weeks of gestation: 30 weeks Asymptomatic bacteriuria during O99.89; R82.71 Encounter for supervision of normal first in third trimester Z34.03 Trimester: third trimester 06/18/18 1644 <Electronically signed by Alix Parra MD> Date Alix Parra MD Cosigner Signature: Date (if applicable) CC: PROTEIN+CREATININE Collected: Status: F Source: JOSELIN SANTIAGO,URINE 06/18/2018 12:00 AM [facility] [place] REPOSITORY TYPE CODE TESTS RESULT OUT OF RANGE REFERENCE UNITS LAB L501.1200 NO RANGE EST. mg/dL Normal UR CREAT 109.00 LAB L501.1930 <11.9 mg/dL High 63.3 PROTEIN,UR.R AN. LAB L501.1940 0-200 mg/g CRE High PROT:CRE [id number] RATIO Performed By: #### L501.0900 #### [facility] [address] [place], [address] CBC W/DIFF, AUTOMATED Collected: 05/21/2018 Status: F Source: JOSELIN 4:05 PM [facility] REPOSITORY TYPE CODE TESTS RESULT OUT OF RANGE REFERENCE UNITS LAB L100.1000 4.4-11.0 K/mm3 Normal WBC 10.7 LAB L100.1200 4.2-5.4 M/mm3 Low RBC 3.29 LAB L100.1300 12.0-15.0 g/dl Low HGB 9.9 LAB L100.1400 37-47 % Low HCT 29.3 LAB L100.1500 81-99 fL Normal MCV 89.1 LAB L100.1600 27.0-32.0 pg Normal MCH 30.1 LAB L100.1700 32-36 g/gl Normal MCHC 33.8 LAB L100.1810 11.6-14.6 % Normal RDW CV 12.2 LAB L100.1820 35.1-43.9 fl Normal RDW SD 39.4 LAB L100.1900 150-450 K/mm3 Normal PLT 151 LAB L100.2000 6.2-12.0 fl Normal MPV 9.5 LAB L100.2100 47-70 % High NEUT% 77.8 LAB L100.2200 19-41 % Low LY% 13.3 LAB L100.2300 0-10 % Normal MONO% 7.4 LAB L100.2400 0-5 % Normal EO% 0.7 LAB L100.2500 0-1 % Normal BASO% 0.1 LAB L100.2550 0.0-0.9 % Normal IM GRAN % 0.700 Result Comment: IG% - Immature Granulocytes (promyelocytes, myelocytes and metamyelocytes) > 1% indicates that a LEFT SHIFT is Present. LAB L100.2620 2.0-7.7 X10 3/uL High Absolute Neut 8.4 LAB L100.2720 0.83-4.51 X10 3/ul Normal Absolute Lymph 1.43 Performed By: #### L100.0100 #### [facility] [address] [place], [place], [address] GLUCOSE CHALLENGE GEST Collected: 05/21/2018 Status: F Source: JOSELIN 1H 50G 4:05 PM [facility] REPOSITORY Order Comment: Comments: Draw lab at 4:08pm TYPE CODE TESTS RESULT OUT OF RANGE REFERENCE UNITS LAB L501.0250 70-140 mg/dL Normal GLU GEST 101 50g 1H Performed By: #### L501.0250 #### [facility] [address] [place], [place], [address] FLAVORER OFFICE VISIT Observed: 05/21/2018 Status: F Source: JOSELIN REPORT 3:22 PM [facility] REPOSITORY [facility] [place] [address] [place] [address] OFFICE VISIT Date of Service: 05/21/18 MR#: [id number] Acct: [id number] Name: GENARO FLOWER Rep #: [id number] : 1990 Provider: Alix Parra MD Age/Sex: 27/F [place] [facility]: Signed Intake Vital Signs05/21/18 Height 5 ft 3 in 05/21/18 Weight: 163 lb 8 oz 05/21/18 Body Mass Index (BMI) 28.9 05/21/18 Blood Pressure 122/67 Intake Visit Reasons: 26 weeks Agricultural Plow Operator Required: No Is patient in pain?: No Allergies No Known Allergies Allergy (Verified 05/21/18 15:06) Medications vitamin,calcium,trjfliym-uvxx-ljyzt acid tablet 1 tab PO QDAY 02/12/18 [History Confirmed 05/21/18] Last Menstral Period: 11/20/17 Zika: Zika virus screening: Negative : No PFSH PFSH Social History Smoking Status: Never smoker alcohol intake: never substance use type: does not use caffeine: Yes what type of physical activity do you participate in: none seatbelt use: always do you feel safe at home: Yes 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 OB Visit PATY Calculator Estimated Delivery Date 08/27/18 Based on LMP (certain) 11/20/17 Current WG 26w 0d Number 1 Expected Delivery Route/Plan Specific Issue/Plans flu vaccine: minichart given: yes tdap vaccine: [] rhogam: [] LARC form signed: [] labor support person: [] pain management: [] cut cord/dad catch: [] : [] PP control planned: [] special requests: [] Initial Weight: 147 lb Date Weight BP Urine PFHR FuHt Pres MCTX DilatioFetal SVisit NProvideComment rot ov n t ote r s EGA Ef Gluco faced se 01/15/1147 lb 126/56 8 (+0 oz) 8w 0d Visit Notes Visit Date: 05/21/18 no vb lof cramping cbc gct tdap today Alix Parra MD on 05/21/18 Visit Date: 04/20/18 no vb lof good fm no regular ctx Alix Parra MD on 04/20/18 Visit Date: 03/12/18 no vb lof no cramping Alix Parra MD on 03/12/18 Visit Date: 02/12/18 no vb signfiicant cramping Alix Parra MD on 02/12/18 Visit Date: 01/15/18 No visit notes to display ACOG First Trimester First Trimester: Desire for , Alcohol, Tobacco Cessation, Illicit/Recreational Drug/Substance Use, Intimate Partner Violence, Barriers to care, Unstable Housing, Communication Barriers, Environmental/Work Hazards, Anticipated Course of Care, Toxoplasmosis Precations, Use of Any medications, Sexual activity, Exercise, Dental Care, Sauna/Hot tub use, Seat Belt use, Childbirth classes/Hospital facilities, , Travel, Indications for US and Screening for Aneuploidy Diagnostics Diagnostics Labs Blood Type A POSITIVE 01/15/18 Antibody Screen NEGATIVE 01/15/18 Hct 32.6 % (37-47) L 01/15/18 Hgb 11.1 g/dl (12.0-15.0) L 01/15/18 Obstetrics Ultrasound 04/09/18 Rubella IgG Antibody 149.3 IU/mL 01/15/18 RPR NONREACTIVE (NONREACTIVE) 01/15/18 Hep Bs Antigen Negative (Negative) 01/15/18 Chlam trachomat DNA PCR Negative (Negative) 01/15/18 N.gonorrhoeae DNA (PCR) Negative (Negative) 01/15/18 Details: HIV: Urine Culture: Sequential Screen: NIPT Screen: Results [id number] Office Urine Glucose Negative Last Edit by Dee Chapa on 05/21/18 15:16 Office Urine Protein Negative Last Edit by Dee Chapa on 05/21/18 15:16 Immunizations Boostrix Tdap Performing Provider: Alix Parra MD Administered by: Dee Chapa on 05/21/18 15:17 Dose Route Admin Location Lot Number Expiration Date NDC [employer] Architect 0.5 mL IM Left Deltoid [id number] 07/21/19 32519-380-75 [employer] VIS Given Date VIS Publication Date 05/21/18 10/21/14 Eligibility Eligibility Date Assessment AND Plan Problems 1. 21 weeks gestation of Z3A.21 genetic and NTD screening counseled 2. Asymptomatic bacteriuria during O99.89; R82.71 macrobid, has had 2 positive cultures both asymptomatic, 3. Encounter for supervision of normal first in second trimester Z34.02 PRR PATY 08/27/18 gender surprise Pardeep Plan ACOG trimester education reviewed and updated. see problem list details for updated plan management information and see below for orders placed at this visit. [place] appropriate handout given. Orders Orders: Medications Discontinued: Boostrix Tdap (diphth,pertus(acell),tetanus) Disc0.5 mL IM ONCE NS Z23 Dee Chapa ontinued Reason: Office Medication has been Documen victor manuel as given Coding Level of Care Code OB Routine Diagnoses 21 weeks gestation of Z3A.21 Weeks of gestation: 21 weeks Asymptomatic bacteriuria during O99.89; R82.71 Encounter for supervision of normal first in second trimester Z34.02 Trimester: second trimester 05/21/18 1522 <Electronically signed by Alix Parra MD> Date Alix Parra MD Cosigner Signature: Date (if applicable) CC: FLAVORER OFFICE VISIT Observed: 04/20/2018 Status: F Source: JOSELIN REPORT 4:26 PM [facility] REPOSITORY [facility] [place] [address] [place] [address] OFFICE VISIT Date of Service: 04/20/18 MR#: [id number] Acct: [id number] Name: GENARO FLOWER Rep #: [id number] : 1990 Provider: Alix Parra MD Age/Sex: 27/F [place] [facility] Status: Signed Intake Vital Signs04/20/18 Height 5 ft 3 in 04/20/18 Weight: 154 lb 6 oz 04/20/18 Body Mass Index (BMI) 27.3 04/20/18 Blood Pressure 110/60 Intake Visit Reasons: est ob 20 weeks Agricultural Plow Operator Required: No Is patient in pain?: No Allergies No Known Allergies Allergy (Verified 04/20/18 16:04) Medications vitamin,calcium,icmmbohe-usfe-sgixy acid tablet 1 tab PO QDAY 02/12/18 [History Confirmed 04/20/18] Last Menstral Period: 11/20/17 Zika: Zika virus screening: Negative : No PFSH PFSH Social History Smoking Status: Never smoker alcohol intake: never substance use type: does not use caffeine: Yes what type of physical activity do you participate in: none seatbelt use: always do you feel safe at home: Yes 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 OB Visit PATY Calculator Estimated Delivery Date 08/27/18 Based on LMP (certain) 11/20/17 Current WG 21w 4d Number 1 Expected Delivery Route/Plan Specific Issue/Plans flu vaccine: minichart given: yes tdap vaccine: [] rhogam: [] LARC form signed: [] labor support person: [] pain management: [] cut cord/dad catch: [] : [] PP control planned: [] special requests: [] Initial Weight: 147 lb Date Weight BP Urine PrFHR FuHt Pres MoCTX DilationFetal StVisit NoProviderComments E ot v te [place] G Effac lucose ed Visit Notes Visit Date: 04/20/18 no vb lof good fm no regular ctx Alix Parra MD on 04/20/18 Visit Date: 03/12/18 no vb lof no cramping Ailx Parra MD on 03/12/18 Visit Date: 02/12/18 no vb signfiicant cramping Alix Parra MD on 02/12/18 Visit Date: 01/15/18 No visit notes to display ACOG First Trimester First Trimester: Desire for , Alcohol, Tobacco Cessation, Illicit/Recreational Drug/Substance Use, Intimate Partner Violence, Barriers to care, Unstable Housing, Communication Barriers, Environmental/Work Hazards, Anticipated Course of Care, Toxoplasmosis Precations, Use of Any medications, Sexual activity, Exercise, Dental Care, Sauna/Hot tub use, Seat Belt use, Childbirth classes/Hospital facilities, , Travel, Indications for US and Screening for Aneuploidy Diagnostics Diagnostics Labs Blood Type A POSITIVE 01/15/18 Antibody Screen NEGATIVE 01/15/18 Hct 32.6 % (37-47) L 01/15/18 Hgb 11.1 g/dl (12.0-15.0) L 01/15/18 Obstetrics Ultrasound 04/09/18 Rubella IgG Antibody 149.3 IU/mL 01/15/18 RPR NONREACTIVE (NONREACTIVE) 01/15/18 Hep Bs Antigen Negative (Negative) 01/15/18 Chlam trachomat DNA PCR Negative (Negative) 01/15/18 N.gonorrhoeae DNA (PCR) Negative (Negative) 01/15/18 Details: HIV: Urine Culture: Sequential Screen: NIPT Screen: Results [id number] Office Urine Glucose Negative Last Edit by Zari Yao on 04/20/18 16:08 Office Urine Protein Negative Last Edit by Zari Yao on 04/20/18 16:08 Assessment AND Plan Problems 1. Encounter for supervision of normal first in second trimester Z34.02 PRR PATY 08/27/18 Pardeep 2. Asymptomatic bacteriuria during O99.89; R82.71 macrobid, has had 2 positive cultures both asymptomatic, 3. 21 weeks gestation of Z3A.21 genetic and NTD screening counseled Plan ACOG trimester education reviewed and updated. see problem list details for updated plan management information and see below for orders placed at this visit. [place] appropriate handout given. Orders Orders: Coding Level of Care Code OB Routine Diagnoses Encounter for supervision of normal first in second trimester Z34.02 Trimester: second trimester Asymptomatic bacteriuria during O99.89; R82.71 21 weeks gestation of Z3A.21 Weeks of gestation: 21 weeks 04/20/18 1626 <Electronically signed by Alix Parra MD> Date Alix Parra MD Cosigner Signature: Date (if applicable) CC: OB ANATOMY SCAN Observed: 04/09/2018 Status: F Source: GRENORA 4:24 PM [facility] REPOSITORY [facility] Imaging Services [address] [place] [address] OB Anatomy Scan MR#: [id number] Acct: [id number] Name: GENARO FLOWER Rep #: [id number] : 1990 F 27 From: Neto Hooper MD PCP: Care Physician, No Primary Status: REG CLI Study: OB Anatomy Scan Date of Exam: 04/09/18 Exam# [id number] Ordering Dr: Alix Parra MD STUDY: SECOND AND THIRD TRIMESTER OBSTETRICAL ULTRASOUND REASON FOR EXAM: Female, 27 years old. Routine survey. LMP: Unknown. TECHNIQUE: Transabdominal PRIOR ULTRASOUND: None. FINDINGS: There is a single intrauterine fetus. The fetus is in an transverse lie with the head on the maternal left side. There is demonstrated cardiac activity with a heart rate of 140 bpm. There is a normal amniotic fluid volume. The largest amniotic fluid pocket measures 2.3 x 5.5 cm. The placenta is posterior in location and is not low lying. There are Grade 0 placental changes. The cervix measures 3.7 cm in length. The bilateral adnexal regions are normal. BIOMETRY: BPD: 4.5 cm: 19 weeks, 4 days HC: 17.6 cm: 20 weeks, 1 days AC: 14.5 cm: 19 weeks, 6 days FL: 3.1 cm: 19 weeks, 5 days age by current US: 19 weeks, 6 days. PATY by current US: 08/28/2018. Estimated weight: 313 grams, +/- 46 grams, 33 %. Age by LMP: 20 weeks, 0 days. PATY by LMP: 08/27/2018. ANATOMY: Gender: Male Cranium: Normal lateral ventricles. Normal choroid plexus. Normal cerebellum. Normal cisterna magna. Normal face, nose and lips. Chest: Normal 4-chamber heart. Abdomen/Pelvis: Normal diaphragm. Normal stomach. Normal abdominal wall. Normal cord insertion. Normal 3 vessel cord. Normal kidneys. Normal bladder. Spine: Normal cervical spine. Normal thoracic spine. Normal lumbar spine. Normal sacrum. Extremities: Normal bilateral upper extremities. Normal bilateral lower extremities. US/OB Anatomy Scan IMPRESSION: Single live intrauterine at 19 weeks, 6 days by ultrasound with PATY of 08/28/2018. Heart rate of 140 bpm. No suspicious sonographic findings Electronically Signed: Carmelo Hooper MD at 15:00 EDT , Service support , CC: No Primary Care Physician; Alix Parra MD Environmental Department Manager: Signed FLAVORER OFFICE VISIT Observed: 03/12/2018 Status: F Source: GRENORA REPORT 4:04 PM [facility] [address] [place] [address] OFFICE VISIT Date of Service: 03/12/18 MR#: [id number] Acct: [id number] Name: GENARO FLOWER Rep #: [id number] : 1990 Provider: Alix Parra MD Age/Sex: 27/F [place] [facility]: Signed Intake Vital Signs03/12/18 Height 5 ft 3 in 03/12/18 Weight: 149 lb 4 oz 03/12/18 Body Mass Index (BMI) 26.4 03/12/18 Blood Pressure 114/64 Intake Visit Reasons: 16 weeks Agricultural Plow Operator Required: No Accompanied by: Is patient in pain?: No Allergies No Known Allergies Allergy (Verified 03/12/18 15:46) Medications vitamin,calcium,esrrovik-tvdi-opyee acid tablet 1 tab PO QDAY 02/12/18 [History Confirmed 03/12/18] Last Menstral Period: 11/20/17 Zika: Zika virus screening: Negative PFSH PFS Social History Smoking Status: Never smoker alcohol intake: never substance use type: does not use caffeine: Yes what type of physical activity do you participate in: none seatbelt use: always do you feel safe at home: Yes 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 OB Visit PATY Calculator Estimated Delivery Date 08/27/18 Based on LMP (certain) 11/20/17 Current WG 16w 0d Number 1 Expected Delivery Route/Plan Specific Issue/Plans flu vaccine: minichart given: yes tdap vaccine: [] rhogam: [] LARC form signed: [] labor support person: [] pain management: [] cut cord/dad catch: [] : [] PP control planned: [] special requests: [] Initial Weight: 147 lb Date Weight BP Urine PrFHR FuHt Pres MoCTX DilationFetal StVisit NoProviderComments E ot v te [place] G Effac lucose ed Visit Notes Visit Date: 03/12/18 no vb lof no cramping Alix Parra MD on 03/12/18 Visit Date: 02/12/18 no vb signfiicant cramping Alix Parra MD on 02/12/18 Visit Date: 01/15/18 No visit notes to display ACOG First Trimester First Trimester: Desire for , Alcohol, Tobacco Cessation, Illicit/Recreational Drug/Substance Use, Intimate Partner Violence, Barriers to care, Unstable Housing, Communication Barriers, Environmental/Work Hazards, Anticipated Course of Care, Toxoplasmosis Precations, Use of Any medications, Sexual activity, Exercise, Dental Care, Sauna/Hot tub use, Seat Belt use, Childbirth classes/Hospital facilities, , Travel, Indications for US and Screening for Aneuploidy Diagnostics Diagnostics Labs Blood Type A POSITIVE 01/15/18 Antibody Screen NEGATIVE 01/15/18 Hct 32.6 % (37-47) L 01/15/18 Hgb 11.1 g/dl (12.0-15.0) L 01/15/18 Rubella IgG Antibody 149.3 IU/mL 01/15/18 RPR NONREACTIVE (NONREACTIVE) 01/15/18 Hep Bs Antigen Negative (Negative) 01/15/18 Chlam trachomat DNA PCR Negative (Negative) 01/15/18 N.gonorrhoeae DNA (PCR) Negative (Negative) 01/15/18 Details: HIV: Urine Culture: Sequential Screen: NIPT Screen: Results [id number] Office Urine Glucose Negative Last Edit by Bethany Maurer on 03/12/18 15:45 Office Urine Protein Negative Last Edit by Bethany Maurer on 03/12/18 15:45 Assessment AND Plan Problems 1. Asymptomatic bacteriuria during O99.89; R82.71 macrobid, has had 2 positive cultures both asymptomatic, 2. Encounter for supervision of normal first in second trimester Z34.02 PRR PATY 08/27/18 Pardeep 3. 16 weeks gestation of Z3A.16 Plan Orders placed: culture ACOG trimester education reviewed and updated. see problem list details for updated plan management information. [place] appropriate handout given. Orders Orders: Coding Level of Care Code OB Routine Diagnoses Asymptomatic bacteriuria during O99.89; R82.71 Encounter for supervision of normal first in second trimester Z34.02 Trimester: second trimester 16 weeks gestation of Z3A.16 03/12/18 1604 <Electronically signed by Alix Parra MD> Date Alix Parra MD Cosigner Signature: Date (if applicable) CC: FLAVORER OFFICE VISIT Observed: 02/12/2018 Status: F Source: JOSELIN REPORT 4:00 PM [facility] REPOSITORY [facility] [address] [place] [address] OFFICE VISIT Date of Service: 02/12/18 MR#: [id number] Acct: [id number] Name: GENARO FLOWER Rep #: [id number] : 1990 Provider: Alix Parra MD Age/Sex: 27/F [place] [facility]: Signed Intake Vital Signs02/12/18 Height 5 ft 3 in 02/12/18 Weight: 150 lb 02/12/18 Body Mass Index (BMI) 26.5 02/12/18 Blood Pressure 115/64 Intake Visit Reasons: 12 weeks Chief Complaint: est ob Agricultural Plow Operator Required: No Is patient in pain?: No Allergies No Known Allergies Allergy (Verified 02/12/18 15:36) Medications vitamin,calcium,cupnmhza-novz-jzmmo acid tablet 1 tab PO QDAY 02/12/18 [History Confirmed 02/12/18] Last Menstral Period: 11/20/17 Zika: Zika virus screening: Negative : No PFSH PFSH Social History Smoking Status: Never smoker alcohol intake: never substance use type: does not use caffeine: Yes what type of physical activity do you participate in: none seatbelt use: always do you feel safe at home: Yes 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 OB Visit PATY Calculator Estimated Delivery Date 08/27/18 Based on LMP (certain) 11/20/17 Current WG 12w 0d Number 1 Expected Delivery Route/Plan Specific Issue/Plans flu vaccine: minichart given: yes tdap vaccine: [] rhogam: [] LARC form signed: [] labor support person: [] pain management: [] cut cord/dad catch: [] : [] PP control planned: [] special requests: [] Initial Weight: 147 lb Date Weight BP Urine PrFHR FuHt Pres MoCTX DilationFetal StVisit NoProviderComments E ot v te [place] G Effac lucose ed Visit Notes Visit Date: 02/12/18 no vb signfiicant luz Parra MD on 02/12/18 Visit Date: 01/15/18 No visit notes to display ACOG First Trimester First Trimester: Desire for , Alcohol, Tobacco Cessation, Illicit/Recreational Drug/Substance Use, Intimate Partner Violence, Barriers to care, Unstable Housing, Communication Barriers, Environmental/Work Hazards, Anticipated Course of Care, Toxoplasmosis Precations, Use of Any medications, Sexual activity, Exercise, Dental Care, Sauna/Hot tub use, Seat Belt use, Childbirth classes/Hospital facilities, , Travel, Indications for US and Screening for Aneuploidy Diagnostics Diagnostics Labs Blood Type A POSITIVE 01/15/18 Antibody Screen NEGATIVE 01/15/18 Hct 32.6 % (37-47) L 01/15/18 Hgb 11.1 g/dl (12.0-15.0) L 01/15/18 Rubella IgG Antibody 149.3 IU/mL 01/15/18 RPR NONREACTIVE (NONREACTIVE) 01/15/18 Hep Bs Antigen Negative (Negative) 01/15/18 Chlam trachomat DNA PCR Negative (Negative) 01/15/18 N.gonorrhoeae DNA (PCR) Negative (Negative) 01/15/18 Details: HIV: Urine Culture: Sequential Screen: NIPT Screen: Assessment AND Plan Problems 1. Encounter for supervision of normal first in first trimester Z34.01 PRR PATY 08/27/18 Pardeep 2. Asymptomatic bacteriuria during O99.89; R82.71 macrobid, needs repeat culture 3. 12 weeks gestation of Z3A.12 Plan Orders placed: urine culture ACOG trimester education reviewed and updated. see problem list details for updated plan management information. [place] appropriate handout given. Coding Level of Care Code OB Routine Diagnoses Encounter for supervision of normal first in first trimester Z34.01 Trimester: first trimester Asymptomatic bacteriuria during O99.89; R82.71 12 weeks gestation of Z3A.12 02/12/18 1600 <Electronically signed by Alix Parra MD> Date Alix Parra MD Cosigner Signature: Date (if applicable) CC: Observed: 02/12/2018 Status: F Source: JOSELIN CULTURE, URINE 12:00 AM [facility] REPOSITORY Urine Culture ORGANISM 1: Presumptive E. coli [place] Count 25,000-50,000 Presumptive E. coli: REACTION Amoxacillin/Clavulanic Acid $ <=2 S Ampicillin $ <=2 S Ampicillin/Sulbactam $ <=2 S Cefazolin $ <=4 S Cefepime $ <=1 S Ceftriaxone $ <=1 S Ciprofloxacin $ <=0.25 S ESBL - Ertapenim $$$ <=0.5 S Gentamicin $ <=1 S Imipenem *NF <=0.25 S Levofloxacin $ <=0.12 S Nitrofurantoin $ 32 S Piperacillin/Tazobactam $$ <=4 S Tobramycin $ <=1 S Trimethoprim/Sulfametho $ <=20 S (NF) indicates non-formulary drug at [facility]. Approval by Infectious Disease Specialist required before non-formulary drugs may be ordered and/or dispensed. Performed By: #### M100.0650 #### [facility] [address] [place], [address] FLAVORER OFFICE VISIT Observed: 01/16/2018 Status: F Source: GRENORA REPORT 10:38 AM [facility] REPOSITORY [facility] [place] [address] [place] [address] OFFICE VISIT Date of Service: 01/15/18 MR#: [id number] Acct: [id number] Name: GENARO FLOWER Rep #: [id number] : 1990 Provider: Alix Parra MD Age/Sex: 27/F [place] [facility] [place]: Signed Intake Vital Signs01/15/18 Height 5 ft 3 in 01/15/18 Weight: 147 lb 01/15/18 Body Mass Index (BMI) 26.0 01/15/18 Blood Pressure 126/56 Intake Visit Reasons: LMP 11/20/17 Agricultural Plow Operator Required: No Accompanied by: Is patient in pain?: No Allergies No Known Allergies Allergy (Verified 01/15/18 16:12) Medications docosahexanoic acid 200 mg capsule mg PO 01/15/18 [History Confirmed 01/15/18] Last Menstral Period: 11/20/17 Zika: Zika virus screening: Negative : No PFSH PFSH Social History Smoking Status: Never smoker alcohol intake: never substance use type: does not use caffeine: Yes what type of physical activity do you participate in: none seatbelt use: always do you feel safe at home: Yes 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 OB Visit PATY Calculator Estimated Delivery Date 08/27/18 Based on LMP (certain) 11/20/17 Current WG 8w 1d Number 1 Comments: Limited transvaginal ultrasound performed to confirm EDC and viability. CRL is 16.2 mm measuring 8w2d which is consistent with LMP. FHTs 170. no gross abnormalities noted. Expected Delivery Route/Plan Specific Issue/Plans flu vaccine: [] minichart given: [] tdap vaccine: [] rhogam: [] LARC form signed: [] labor support person: [] pain management: [] cut cord/dad catch: [] : [] PP control planned: [] special requests: [] Initial Weight: 147 lb Date Weight BP Urine PrFHR FuHt Pres MoCTX DilationFetal StVisit NoProviderComments E ot v te GA G Effac lucose ed Menstrual History Last Menstral Period: 11/20/17 Reported LMP: definite Normal amount/duration: Yes On hormonal BC at conception: No Antepartum Record Genetic Screening: Congenital Heart Defect: Other, Neural Tube Defect: Other, Hemoglobinopathy Or Carrier: Other, Cystic Fibrosis: Other, Chromosome Abnormality: Other, Sahil-Sachs: Other, Hemophilia: Other, Intellectual Disability/Autism: Other, Recurrent Loss/Stillbirth: Other, Other Structural Defect: Other, Other Genetic Disease: Other, Maternal Metabolic Disorder: Other Infection History: Live with someone with TB or Exposed to TB: No, Patient or Partner has history of Genital Herpes: No, Rash or Viral illness since last mentrual period: No, Prior GBS-Infected child: No, History of STD: No, HIV Infection: No, History of Hepatitis: No, Recent travel outside of [place]: No, Concern for Hep exposure: No, Varicella immune: Yes Medical History Medical History: Positive: Infertility, Negative: Diabetes, Hypertension, Heart disease, Auto-immune disorder, Kidney disease/UTI, Neurologic/epilepsy, Psychiatric, Depression/ depression, Hepatitis/liver disease, Varicosities/phlebitis, Thyroid dysfunction, Trauma/domestic violence, History of blood transfusions, D (Rh) Sensitized, Pulmonary (e.g.,TB,Asthma), Seasonal allergies, Drug/latex allergies/reactions, Breast, Darkroom Worker surgery, Operations/hospitalizations, Anesthetic complications, History of abnormal pap, Uterine anomaly/chaparro, Anti-retroviral treatment, Relevant family history, Other ACOG First Trimester First Trimester: Desire for , Alcohol, Tobacco Cessation, Illicit/Recreational Drug/Substance Use, Intimate Partner Violence, Barriers to care, Unstable Housing, Communication Barriers, Environmental/Work Hazards, Anticipated Course of Care, Nurtrition and weight gain, Toxoplasmosis Precations, Use of Any medications, Sexual activity, Exercise, Dental Care, Sauna/Hot tub use, Seat Belt use, Childbirth classes/Hospital facilities, , Travel, Indications for US and Screening for Aneuploidy ROS Const Denies fever(s), Reports system reviewed and no additional complaints, except as docu, Reports fatigue Eyes Reports system reviewed and no additional complaints, except as docu ENT Reports system reviewed and no additional complaints, except as docu Card Denies chest pain, Denies shortness of breath Resp Reports system reviewed and no additional complaints, except as docu, Denies shortness of breath, Denies cough GI Reports nausea, Denies abdominal pain Reports system reviewed and no additional complaints, except as docu Musc Reports system reviewed and no additional complaints, except as docu Skin/Breast Reports system reviewed and no additional complaints, except as docu Neuro Yes system reviewed and no additional complaints, except as docu Psych Reports system reviewed and no additional complaints, except as docu Endo Reports fatigue, Reports system reviewed and no additional complaints, except as docu Exam Const General: healthy appearing, comfortable, no acute distress Orientation: alert HENNH Head: normal to inspection, atraumatic, normocephalic Ears: external ears normal, hearing grossly normal bilaterally Nose: nares normal, external nose normal Mouth: oral mucosae normal Teeth and gingiva: dentition normal Eyes General: appearance normal, both eyes and all related structures Neck Neck: no lymphadenopathy, supple, normal visual inspection Thyroid: thyroid normal Resp Effort AND Inspection: normal respiratory effort GI Inspection: normal to inspection Palpation: soft, no hepatosplenomegaly General: bladder normal to palpation External Female Exam: normal external appearance, normal appearance of the urethra Urethra: normal appearance of the urethra Speculum Exam - Vagina: normal appearance of the vagina, normal vaginal discharge Speculum Exam - Cervix: normal appearance of the cervix Bimanual Exam- Vagina AND Uterus: bladder normal to palpation, normal bimanual exam, uterus non-tender, other Bimanual Exam- Adnexa, other: adnexae non-tender Skin General: no rashes or lesions noted Neuro Motor: muscle tone normal throughout, no movement abnormalities noted Extrem General: normal to inspection, full ROM Assessment AND Plan Problems 1. Encounter for supervision of normal first in first trimester Z34.01 PATY 08/27/18 Pardeep Plan Patient oriented to practice and discussed care expectations and screenings. ACOG book offered to patient. labs and 19-20 week anatomy ultrasound ordered. see problem list details for plan information. Genetic screening offered to patient and patient chose: considering NT Orders Orders: Supplemental Info ACOG book given and patient encouraged to read about nutrition, exercise, weight gain, and food avoidance in . Coding Level of Care Code OB Routine Diagnoses Encounter for supervision of normal first in first trimester Z34.01 Trimester: first trimester 01/16/18 1038 <Electronically signed by Alix Parra MD> Date Alix Parra MD Cosigner Signature: Date (if applicable) CC: CBC W/DIFF, AUTOMATED Collected: 01/15/2018 Status: F Source: JOSELIN 5:18 PM [facility] REPOSITORY TYPE CODE TESTS RESULT OUT OF RANGE REFERENCE UNITS LAB L100.1000 4.4-11.0 K/mm3 Normal WBC 10.0 LAB L100.1200 4.2-5.4 M/mm3 Low RBC 3.73 LAB L100.1300 12.0-15.0 g/dl Low HGB 11.1 LAB L100.1400 37-47 % Low HCT 32.6 LAB L100.1500 81-99 fL Normal MCV 87.4 LAB L100.1600 27.0-32.0 pg Normal MCH 29.8 LAB L100.1700 32-36 g/gl Normal MCHC 34.0 LAB L100.1810 11.6-14.6 % Normal RDW CV 12.4 LAB L100.1820 35.1-43.9 fl Normal RDW SD 40.0 LAB L100.1900 150-450 K/mm3 Low PLT 144 LAB L100.2000 6.2-12.0 fl Normal MPV 10.5 LAB L100.2100 47-70 % High NEUT% 73.0 LAB L100.2200 19-41 % Low LY% 18.3 LAB L100.2300 0-10 % Normal MONO% 7.7 LAB L100.2400 0-5 % Normal EO% 0.7 LAB L100.2500 0-1 % Normal BASO% 0.2 LAB L100.2550 0.0-0.9 % Normal IM GRAN % 0.100 Result Comment: IG% - Immature Granulocytes (promyelocytes, myelocytes and metamyelocytes) > 1% indicates that a LEFT SHIFT is Present. LAB L100.2620 2.0-7.7 X10 3/uL Normal Absolute Neut 7.3 LAB L100.2720 0.83-4.51 X10 3/ul Normal Absolute Lymph 1.83 Performed By: #### L100.0100, M100.0650 #### [facility] [place], [address] Observed: 01/15/2018 Status: F Source: JOSELIN LAURA, URINE 5:18 PM [facility] REPOSITORY Urine Culture ORGANISM 1: Presumptive E. coli Enid Count >100,000 Presumptive E. coli: REACTION Amoxacillin/Clavulanic Acid $ <=2 S Ampicillin $ <=2 S Ampicillin/Sulbactam $ <=2 S Cefazolin $ <=4 S Cefepime $ <=1 S Ceftriaxone $ <=1 S Ciprofloxacin $ <=0.25 S ESBL - Ertapenim $$$ <=0.5 S Gentamicin $ <=1 S Imipenem *NF <=0.25 S Levofloxacin $ <=0.12 S Nitrofurantoin $ <=16 S Piperacillin/Tazobactam $$ <=4 S Tobramycin $ <=1 S Trimethoprim/Sulfametho $ <=20 S (NF) indicates non-formulary drug at [facility]. Approval by Infectious Disease Specialist required before non-formulary drugs may be ordered and/or dispensed. Performed By: #### L100.0100, M100.0650 #### [facility] [address] [place] [address]. [place], [address] TYPE AND SCREEN Collected: 01/15/2018 Status: F Source: GRENORA 5:18 PM [facility] REPOSITORY Order Comment: Reason for Type AND Screen/Red Cells: TYPE CODE TESTS RESULT OUT OF RANGE REFERENCE UNITS LAB B10.0800 A Normal BLOOD TYPE GEL POSITIVE LAB B100.4000 Normal Antibody NEGATIVE Screen Performed By: #### B101.7450 #### [facility] [address] [place] [address]. [place], [address] #### L3100.0390 #### [facility] (refer to report for specific site) refer to report for address and phone number HEPATITIS B SURFACE Collected: 01/15/2018 Status: F Source: [facility] 5:18 PM [facility] REPOSITORY TYPE CODE TESTS RESULT OUT OF RANGE REFERENCE UNITS LAB L3100.0400 Negative Normal HB Negative SURF AG Result Comment: Performed at: - [facility], [place], [place] [id number] Casing Cleaner: Anthony Lo PhD, Phone: [phone] Performed By: #### B101.7450 #### [facility] [address] [place] [address]. [place], [address] #### L3100.0390 #### [facility] (refer to report for specific site) refer to report for address and phone number RUBELLA IGG Collected: 01/15/2018 Status: F Source: [place] 5:18 PM [facility] REPOSITORY TYPE CODE TESTS RESULT OUT OF RANGE REFERENCE UNITS LAB L509.4000 IU/mL Normal Rubella IgG 149.3 Result Comment: Antibody results Interpretation of Immune Status < 5 IU/ml Presumed Non-immune 5 - < 10 IU/ml Equivocal > or = 10 IU/ml Presumed Immune Performed By: #### L509.4000, L3890.6005, L700.5000 #### [facility] [address] [place], [address] HIV - [facility] Collected: 01/15/2018 Status: F Source: GR[place] 5:18 PM [facility] REPOSITORY TYPE CODE TESTS RESULT OUT OF RANGE REFERENCE UNITS LAB L3890.6005 Nonreactive Normal HIV - [facility] Non-Reactive Performed By: #### L509.4000, L3890.6005, L700.5000 #### [facility] [address] [place], [address] RAPID PLASMIN REAGIN Collected: 01/15/2018 Status: F Source: GRENORA (RPR) 5:18 PM [facility] REPOSITORY TYPE CODE TESTS RESULT OUT OF REFERENCE UNITS RANGE LAB L700.5000 NONREACTIVE NONREACTIVE Normal RPR Performed By: #### L509.4000, L3890.6005, L700.5000 #### [facility] [address] [place], [address] CT/NG [facility] BY PCR Collected: 01/15/2018 Status: F Source: GR[place] 5:18 PM [facility] REPOSITORY TYPE CODE TESTS RESULT OUT OF RANGE REFERENCE UNITS LAB L8200.2100 Negative Normal Chlam Negative Trac PCR LAB L8200.2200 Negative Normal NG by Negative PCR Performed By: #### L8200.2000 #### [facility] [address] [place], [address] ALLERGIES ALLERGIES DATE TYPE / CODE NAME / CODE REACTION SEVERITY SOURCE 08/13/2018 Drug No Known Unknown [facility] Allergy/4160 Allergies/F00 [facility] 10609(SNOMED 1270529(RXNOR Repository CT) M) ENCOUNTERS ENCOUNTERS ADMIT/DISCHARGE ACCOUNT ADMITTING ENCOUNTER LOCATION SOURCE NUMBER CLASS 08/13/2018/ [id number] Fidel, Inpatient [place] 8 7 [place] Encounter [facility] ing:WPRoom: Repository WI[address]Ykw: 1 08/13/2018 [id number] Fidel, Ambulatory BMSBuilding:B [place] 2 [place] [facility] Repository 08/13/2018 [id number] Fidel, Ambulatory BMSBuilding:B [place] 3 [place] [facility] Repository 08/13/2018 [id number] Fidel, Ambulatory BMSBuilding:B [place] 4 [place] [facility] Repository 08/08/2018/ [id number] Ambulatory BMSBuilding:B [place] 8 6 [facility] Repository 08/03/2018 [id number] Ambulatory [place] 0 [facility] ing:[facility] Repository 08/03/2018/ [id number] Ambulatory BMSBuilding:B [place] 8 4 [facility] Repository 07/16/2018/ [id number] Ambulatory BMSBuilding:B [place] 8 3 [facility] Repository 07/02/2018 [id number] Ambulatory [place] 7 [facility] ing:[facility] Repository 07/02/2018/ [id number] Ambulatory BMSBuilding:B [place] 8 2 MS.[facility] Repository 06/20/2018 [id number] Ambulatory [place] 8 [facility] ing:[facility] Repository 06/20/2018/ [id number] Ambulatory BMSBuilding:B [place] 8 5 [facility] Repository 06/18/2018 [id number] Ambulatory [place] 9 [facility] ing:[facility] Repository 06/18/2018/ [id number] Ambulatory BMSBuilding:B [place] 8 1 [facility] Repository 05/21/2018 [id number] Ambulatory [place] 2 [facility] ing:LAB Repository 05/21/2018/ [id number] Ambulatory BMSBuilding:B [place] 8 7 [facility] Repository 04/20/2018/ [id number] Ambulatory BMSBuilding:B [place] 8 8 [facility] Repository 04/09/2018 [id number] Ambulatory [place] 0 [facility] ing:US Repository 03/12/2018/ [id number] Ambulatory BMSBuilding:B [place] 8 4 [facility] Repository 02/12/2018 [id number] Ambulatory [place] 2 [facility] ing:[facility] Repository 02/12/2018/ [id number] Ambulatory BMSBuilding:B [place] 8 3 [facility] Repository 01/15/2018 [id number] Ambulatory [place] 5 [facility] ing:LAB Repository 01/15/2018/ [id number] Ambulatory BMSBuilding:B [place] 8 7 [facility] Repository PAYERS PAYERS ENCOUNTER GUARANTOR PAYER SUBSCRIBER SOURCE 08/13/2018 GENARO R Primary PARDEEP [place] [id number] Insurance:AULTCAREPol LEHMANDOB: [facility] Number: [id number] [id number] Repository 48768Tcc: 330 e Date:8825-55-35CH [phone] () [address] [place] [address]OK: 08/13/2018 Secondary NOT GIVENUNK [place] Insurance:SELF PAY [facility] Number: Effective Repository Date:2018-08-13 08/13/2018 GENARO R Primary PARDEEP [place] [id number] Insurance:AULTCAREPol LEHMANDOB: [facility] Number: [id number], [place] [id number] Repository 610[address]Wdi: 330 e Date:3608-11-31OX [phone] () [address] [place] [address]FE: 08/13/2018 Secondary NOT GIVENUNK [place] Insurance:SELF PAY [facility]: Effective Repository Date:2018-08-13 08/13/2018 GENARO R Primary PARDEEP [place] [id number] Insurance:AULTCAREPol LEHMANDOB: Community [address] Number: [id number] [id number] Repository 38[address]Hai: (494) e Date:7620-14-81ZB [phone] () [address] [place] [address]BC: 08/13/2018 Secondary NOT GIVENUNK [place] Insurance:SELF PAY [facility] Number: Effective Repository Date:2018-08-13 08/13/2018 GENARO R Primary PARDEEP [place] [id number] Insurance:AULTCAREPol LEHMANDOB: [facility] icy Number: [id number], [place] [id number] Repository 705[address]Kie: (835) e Date:7233-64-90CB [phone] () [address] [place] [address]DX: 08/13/2018 Secondary NOT GIVENUNK [place] Insurance:SELF PAY [facility] Number: Effective Repository Date:2018-08-13 08/08/2018 GENARO R Primary PARDEEP [place] [id number] Insurance:AULTCAREPol LEHMANDOB: Community [address] icy Number: [id number], [place] [id number] Repository 48[address]Fff: (645) e Date:9615-99-43GD [phone] () [address] [place] [address]DH: 08/08/2018 Secondary NOT GIVENUNK [place] Insurance:SELF PAY [facility] Number: Effective Repository Date:2018-08-08 08/03/2018 GENARO R Primary PARDEEP [place] [id number] Insurance:AULTCAREPol LEHMANDOB: Community [facility] icy Number: [id number], [place] [id number] Repository 28[address]Ohq: (452) e Date:4038-91-84XQ [phone] () [address] [place] [address]GT: 08/03/2018 Secondary NOT GIVENUNK [place] Insurance:SELF PAY [facility] Number: Effective Repository Date:2018-08-03 08/03/2018 GENARO R Primary PARDEEP [place] [id number] Insurance:AULTCAREPol LEHMANDOB: Community [address] icy Number: [id number] City, [place] [id number] Repository 630[address]Lbd: (330) e Date:8338-09-03NW [phone] () [address] [place] [address]OR: 08/03/2018 Secondary NOT GIVENUNK [place] Insurance:SELF PAY [facility] Number: Effective Repository Date:2018-08-03 07/16/2018 GENARO R Primary PARDEEP [place] [id number] Insurance:AULTCAREPol LEHMANDOB: Community [address] icy Number: [id number] City, [place] [id number] Repository 730[address]Lgt: (330) e Date:8638-64-33DH [phone] () [address] [place] [address]63[address]WI: 07/16/2018 Secondary NOT GIVENUNK [place] Insurance:SELF PAY [facility] Number: Effective Repository Date:2018-07-16 07/02/2018 GENARO R Primary PARDEEP [place] [id number] Insurance:AULTCAREPol LEHMANDOB: Community [address] icy Number: [id number] [place], [place] [id number] Repository 83175Rks: (330) e Date:0144-56-94BN [phone] () [address] [place] [address]JE: 07/02/2018 Secondary NOT GIVENUNK [place] Insurance:SELF PAY [facility] Number: Effective Repository Date:2018-07-02 07/02/2018 GENARO R Primary PARDEEP [place] [id number] Insurance:AULTCAREPol LEHMANDOB: Community [address] icy Number: [id number] [place], [place] [id number] Repository 12902Vdd: (372) e Date:3604-12-74DR [phone] () [address] [place] [address]EV: 07/02/2018 Secondary NOT GIVENUNK [place] Insurance:SELF PAY [facility] Number: Effective Repository Date:2018-07-02 06/20/2018 GENARO R Primary PARDEEP [place] [id number] Insurance:AULTCAREPol LEHMANDOB: [facility] icy Number: [id number] [place], [place] [id number] Repository 257[address]Vbm: (874) e Date:0555-84-11CQ [phone] () [address] [place] [address]IO: 06/20/2018 Secondary NOT GIVENUNK [place] Insurance:SELF PAY [facility] Number: Effective Repository Date:2018-06-20 06/20/2018 GENARO R Primary PARDEEP [place] [id number] Insurance:AULTCAREPol LEHMANDOB: Community [facility] icy Number: [id number] [place], [place] [id number] Repository 927[address]Jyz: (330) e Date:6520-56-48TQ [phone] () [address] [place] [address]UF: 06/20/2018 Secondary NOT GIVENUNK [place] Insurance:SELF PAY [facility] Number: Effective Repository Date:2018-06-20 06/18/2018 GENARO R Primary PARDEEP [place] [id number] Insurance:AULTCAREPol LEHMANDOB: Community [facility] icy Number: [id number] City, [place] [id number] Repository 08651Okw: (649) e Date:3767-29-49UV [phone] () [address] [place] [address]OT: 06/18/2018 Secondary NOT GIVENUNK [place] Insurance:SELF PAY [facility] Number: Effective Repository Date:2018-06-18 06/18/2018 GENARO R Primary PARDEEP [place] [id number] Insurance:AULTCAREPol LEHMANDOB: Community [address] icy Number: [id number] [place], [place] [id number] Repository 145[address]Xjb: (330) e Date:9825-18-87SL [phone] () [address] [place] [address]KK: 06/18/2018 Secondary NOT GIVENUNK [place] Insurance:SELF PAY [facility] Number: Effective Repository Date:2018-06-18 05/21/2018 GENARO R Primary PARDEEP [place] [id number] Insurance:AULTCAREPol LEHMANDOB: Community [address] icy Number: [id number] [place], [place] [id number] Repository 24[address]Jue: (518) e Date:7568-29-82EA [phone] () [address] [place] [address]XF: 05/21/2018 Secondary NOT GIVENUNK [place] Insurance:SELF PAY [facility] Number: Effective Repository Date:2018-05-21 05/21/2018 GENARO R Primary PARDEEP [place] [id number] Insurance:AULTCAREPol LEHMANDOB: Community [address] icy Number: [id number] [place], [place] [id number] Repository 866[address]Mfv: (436) e Date:2546-58-04ZH [phone] () [address] [place] [address]MV: 05/21/2018 Secondary NOT GIVENUNK [place] Insurance:SELF PAY [facility] Number: Effective Repository Date:2018-05-21 04/20/2018 GENARO R Primary PARDEEP [place] [id number] Insurance:AULTCAREPol LEHMANDOB: Community [address] icy Number: [id number] [place], [place] [id number] Repository 760[address]Vbb: (839) e Date:8983-10-92AX [phone] () [address] [place] [address]VW: 04/20/2018 Secondary NOT GIVENUNK [place] Insurance:SELF PAY [facility] Number: Effective Repository Date:2018-04-12 04/09/2018 GENARO R Primary PARDEEP [place] [id number] Insurance:AULTCAREPol LEHMANDOB: Community [address] icy Number: [id number] [place], [place] [id number] Repository 137[address]Qek: (616) e Date:4381-04-12XO [phone] () [address] [place] [address]KB: 04/09/2018 Secondary NOT GIVENUNK [place] Insurance:SELF PAY [facility] Number: Effective Repository Date:2018-03-13 03/12/2018 GENARO R Primary PARDEEP [place] [id number] Insurance:AULTCAREPol LEHMANDOB: [facility] icy Number: [id number] [place], [place] [id number] Repository 824[address]Nlv: (330) e Date:9015-20-12ZO [phone] () [address] [place] [address]DK: 03/12/2018 Secondary NOT GIVENUNK [place] Insurance:SELF PAY [facility] Number: Effective Repository Date:2018-03-12 02/12/2018 GENARO R Primary PARDEEP [place] [id number] Insurance:AULTCAREPol LEHMANDOB: Community [facility] icy Number: [id number] [place], [place] [id number] Repository 81010Mxq: (698) e Date:7057-93-92BF [phone] () [address] [place] [address]SQ: 02/12/2018 Secondary NOT GIVENUNK [place] Insurance:SELF PAY [facility] Number: Effective Repository Date:2018-02-12 02/12/2018 GENARO R Primary PARDEEP [place] [id number] Insurance:AULTCAREPol LEHMANDOB: [facility] icy Number: [id number] City, [place] [id number] Repository 330[address]Dmx: (330) e Date:9685-54-82AZ [phone] () [address] [place] [address]AF: 02/12/2018 Secondary NOT GIVENUNK [place] Insurance:SELF PAY [facility] Number: Effective Repository Date:2018-02-12 01/15/2018 GENARO R Primary PARDEEP [place] [id number] Insurance:AULTCAREPol LEHMANDOB: [facility] icy Number: [id number] [place], [place] [id number] Repository 98237Xif: 330) e Date:7619-51-65PW [phone] () [address] [place] [address]MS: 01/15/2018 Secondary NOT GIVENUNK [place] Insurance:SELF PAY [facility] Number: Effective Repository Date:2018-01-15 01/15/2018 GENARO CARRILLOAN1973 Primary PARDEEP [place] [address] Insurance:AULTCAREPol LEHMANDOB: [place] ic Number: [id number] Hospital [address]Vhb: 330) [id number] Repository [phone] () e Date:9223-31-55HN [address] [place] [address]ME: 01/15/2018 Secondary NOT GIVENUNK [place] Insurance:SELF PAY [facility] Number: Effective Repository Date:2018-01-15
== END 2018-08-15 11:30 | disposition home or self-care (01) | DRG 768 ==
PROVIDERS: Admitting Provider Obstetrics & Gynecology; Visit Provider Obstetrics & Gynecology
DX: O76 Abnormality in fetal heart rate and rhythm complicating labor and delivery (principal); Z37.0 Single live birth; O72.1 Other immediate postpartum hemorrhage; O70.20 Third degree perineal laceration during delivery, unspecified; D62 Acute posthemorrhagic anemia; O99.02 Anemia complicating childbirth; O42.02 Full-term premature rupture of membranes, onset of labor within 24 hours of rupture; O69.1XX0 Labor and delivery complicated by cord around neck, with compression, not applicable or unspecified; O99.89 Other specified diseases and conditions complicating pregnancy, childbirth and the puerperium; R82.71 Bacteriuria; Z87.891 Personal history of nicotine dependence; Z3A.38 38 weeks gestation of pregnancy
CPT/HCPCS: 59025; 59050; 85027; 86850; 86900; 99218; J7030; J7120; A4216; G0378

== ENCOUNTER → 2019-10-09 08:40 | Outpatient (CLI) | payer OTHER, SELFPAY ==
[2019-10-09 08:17] VITALS: BMI 31.1
[2019-10-14 14:47] LABS: HPV Reflexed? NOT INDICATED
== END ==
PROVIDERS: Referring Provider Obstetrics & Gynecology; Visit Provider Obstetrics & Gynecology
DX: Z12.4 Encounter for screening for malignant neoplasm of cervix (principal)
CPT/HCPCS: 88175; G0145

== ENCOUNTER → 2020-10-15 09:14 | Outpatient (CLI) | payer OTHER, SELFPAY ==
[2020-10-15 08:47] VITALS: BMI 23.3
[2020-10-15 10:29] LABS: Thyroid Stim Hormone (TSH) 2.34 uIU/mL (0.358-3.74)
== END ==
PROVIDERS: Referring Provider Obstetrics & Gynecology; Visit Provider Obstetrics & Gynecology
DX: R53.83 Other fatigue (principal)
CPT/HCPCS: 36415; 84443

== ENCOUNTER → 2021-03-18 10:35 | Outpatient (CLI) | payer OTHER, SELFPAY ==
[2021-03-18 09:53] VITALS: BMI 31.1
== END ==
PROVIDERS: Referring Provider Obstetrics & Gynecology; Visit Provider Obstetrics & Gynecology
DX: N97.9 Female infertility, unspecified (principal)
CPT/HCPCS: 36415

== ENCOUNTER → 2021-03-24 12:04 | Outpatient (CLI) | payer OTHER, SELFPAY ==
[2021-03-18 09:53] VITALS: BMI 31.1
--- NOTE | 2021-03-24 12:06 | US_ITS ---
STUDY: ULTRASOUND OF THE FEMALE PELVIS - COMPLETE REASON FOR EXAM: Female, 30 years old. Dysmenorrhea LMP: 03/06/2021. TECHNIQUE: Transabdominal and Transvaginal TECHNICAL QUALITY: Adequate. COMPARISON: None. FINDINGS: The uterus is anteverted and is tilted to the right side of the pelvis. The uterus measures 7.9 cm x 5.4 cm x 3.5 cm. There is a Nabothian cyst of the cervix. The endometrium measures 6 mm in thickness, and is heterogeneous (striated). There is no demonstrated endometrial mass. There is no demonstrated myometrial mass. I.U.D. - The patient does not have an I.U.D. The right ovary is visualized. The right ovary measures 5 cm x 4.4 cm x 2.1 cm. There is a 4.3 cm x 3.9 cm x 1.2 cm cyst. There is no visualized right adnexal mass or complex lesion. There is normal arterial and normal venous vascularity. The left ovary is visualized. The left ovary measures 5.4 cm x 3.2 cm x 2.8 cm. There is a 3.2 cm x 2.5 cm cyst in the left ovary. There is no visualized left adnexal mass or complex lesion. There is normal arterial and normal venous vascularity. There is minimal fluid in the cul-de-sac. The pre void volume of the bladder was 784 ml. US/Pelvic (Non ) IMPRESSION: Bilateral ovarian cysts. Electronically Signed: Ariel Clark MD at 15:34 EDT , Service support ,
--- NOTE | 2021-03-24 12:06 | US_ITS ---
STUDY: ULTRASOUND OF THE FEMALE PELVIS - COMPLETE REASON FOR EXAM: Female, 30 years old. Dysmenorrhea LMP: 03/06/2021. TECHNIQUE: Transabdominal and Transvaginal TECHNICAL QUALITY: Adequate. COMPARISON: None. FINDINGS: The uterus is anteverted and is tilted to the right side of the pelvis. The uterus measures 7.9 cm x 5.4 cm x 3.5 cm. There is a Nabothian cyst of the cervix. The endometrium measures 6 mm in thickness, and is heterogeneous (striated). There is no demonstrated endometrial mass. There is no demonstrated myometrial mass. I.U.D. - The patient does not have an I.U.D. The right ovary is visualized. The right ovary measures 5 cm x 4.4 cm x 2.1 cm. There is a 4.3 cm x 3.9 cm x 1.2 cm cyst. There is no visualized right adnexal mass or complex lesion. There is normal arterial and normal venous vascularity. The left ovary is visualized. The left ovary measures 5.4 cm x 3.2 cm x 2.8 cm. There is a 3.2 cm x 2.5 cm cyst in the left ovary. There is no visualized left adnexal mass or complex lesion. There is normal arterial and normal venous vascularity. There is minimal fluid in the cul-de-sac. The pre void volume of the bladder was 784 ml. US/Transvaginal Non- IMPRESSION: Bilateral ovarian cysts. Electronically Signed: Ariel Clark MD at 15:34 EDT , Service support ,
== END ==
PROVIDERS: Referring Provider Obstetrics & Gynecology; Visit Provider Obstetrics & Gynecology
DX: N94.6 Dysmenorrhea, unspecified (principal); N97.9 Female infertility, unspecified
CPT/HCPCS: 76830; 76856

== ENCOUNTER → 2021-05-05 12:14 | Outpatient (CLI) | payer OTHER, SELFPAY ==
[2021-03-18 09:53] VITALS: BMI 31.1
--- NOTE | 2021-05-05 12:21 | US_ITS ---
STUDY: ULTRASOUND OF THE FEMALE PELVIS - COMPLETE REASON FOR EXAM: Female, 30 years old. Dyspareunia LMP: 04/22/2021. TECHNIQUE: Transabdominal and Transvaginal TECHNICAL QUALITY: Adequate. COMPARISON: Comparison is made with prior study dated 03/24/2021. FINDINGS: The uterus is anteverted and is in a midline position. The uterus measures 8.7 cm x 5.5 size by 3.7 cm. Normal uterine cervix. The endometrium measures 6.3 mm in thickness, and is hyperechoic. There is no demonstrated endometrial mass. There is no demonstrated myometrial mass. I.U.D. - The patient does not have an I.U.D. The right ovary is visualized. The right ovary measures 4.6 cm x 3.6 x 1.4 cm. There is no right ovarian cyst or ovarian mass. There is no visualized right adnexal mass or complex lesion. There is normal arterial and normal venous vascularity. The left ovary is visualized. The left ovary measures 3.7 cm x 2.4 cm x 2.5 cm. There is no left ovarian cyst or ovarian mass. There is no visualized left adnexal mass or complex lesion. There is normal arterial and normal venous vascularity. There is no fluid in the cul-de-sac. The pre void volume of the bladder was 615 ml. US/Transvaginal Non- IMPRESSION: Normal female pelvis. The previously seen ovarian cysts have resolved. Electronically Signed: Ariel Clark MD at 15:14 EDT , Service support ,
--- NOTE | 2021-05-05 12:21 | US_ITS ---
STUDY: ULTRASOUND OF THE FEMALE PELVIS - COMPLETE REASON FOR EXAM: Female, 30 years old. Dyspareunia LMP: 04/22/2021. TECHNIQUE: Transabdominal and Transvaginal TECHNICAL QUALITY: Adequate. COMPARISON: Comparison is made with prior study dated 03/24/2021. FINDINGS: The uterus is anteverted and is in a midline position. The uterus measures 8.7 cm x 5.5 size by 3.7 cm. Normal uterine cervix. The endometrium measures 6.3 mm in thickness, and is hyperechoic. There is no demonstrated endometrial mass. There is no demonstrated myometrial mass. I.U.D. - The patient does not have an I.U.D. The right ovary is visualized. The right ovary measures 4.6 cm x 3.6 x 1.4 cm. There is no right ovarian cyst or ovarian mass. There is no visualized right adnexal mass or complex lesion. There is normal arterial and normal venous vascularity. The left ovary is visualized. The left ovary measures 3.7 cm x 2.4 cm x 2.5 cm. There is no left ovarian cyst or ovarian mass. There is no visualized left adnexal mass or complex lesion. There is normal arterial and normal venous vascularity. There is no fluid in the cul-de-sac. The pre void volume of the bladder was 615 ml. US/Pelvic (Non ) IMPRESSION: Normal female pelvis. The previously seen ovarian cysts have resolved. Electronically Signed: Ariel Clark MD at 15:14 EDT , Service support ,
== END ==
PROVIDERS: Referring Provider Obstetrics & Gynecology; Visit Provider Obstetrics & Gynecology
DX: N94.19 Other specified dyspareunia (principal)
CPT/HCPCS: 76830; 76856

== ENCOUNTER 2021-06-01 11:54 | Day surgery (SDC) | payer OTHER, SELFPAY ==
[2021-03-18 09:53] VITALS: BMI 31.1
[2021-06-01] VITALS (8 sets, daily range): BP systolic 101–135; BP diastolic 60–72; PULSE 77–108; RESP 16–18; TEMP 36.2–37; O2SAT 99–100; BMI 22.8
--- NOTE | 2021-06-01 04:52 | PCM.HP.BLA ---
History and Physical Date of Admission: 06/01/21 Intake Vital Signs 05/27/21 10:34 Weight: 128 lb 2 oz BP 122/70 H Intake Visit Reasons: diagnostic lap. chromotubation Allergies No Known Allergies Allergy (Verified 05/27/21 10:39) Medications in063-[id number] acid [ 19] 1 tab PO DAILY 05/26/21 [History Confirmed 05/27/21] Is last menstrual period known: Yes Last Menstral Period: 05/19/21 Post menopausal: No Patient : No : No PFSH Medical History Alcohol use Anemia Collapsed lung Easy bruising Non-smoker Social History Smoking Status: Never smoker alcohol intake: never substance use type: does not use caffeine: Yes what type of physical activity do you participate in: none seatbelt use: always do you feel safe at home: Yes additional social history: - [employer] 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 chromotubation Details: GENARO FLOWER is a 30 year old who presents for preop for surgery diagnostic laparoscopy. Female Reproductive History Last Menstral Period: 05/19/21 Menopausal Symptoms: No night sweats Pregancy History 1 Elective abortions Hx Para 1 Spontaneous abortions Hx # Term Pregnancies Ectopic pregnancies Hx # Pregnancies Multiple births # of living children Past Pregnancies Del. Date Name GA/Weeks Outcome Route Bth Weight [facility] 08/13/18 [place] 38 live - full term Male epidural [facility] Delivery Date: 08/13/18 Hemorrhage, variables Partial 3rd degree, ML episiotomy Sammi,Dee ROS Const Constitutional: Denies fatigue, night sweats, weight gain or weight loss ENT ENT: Reports system reviewed and no additional complaints, except as documented Cardio Card: Denies chest pain Resp Resp: Denies cough or dyspnea GI GI: Reports as per HPI; Denies abdominal pain, constipation, nausea or vomiting : Denies nipple discharge, urinary frequency, urinary incontinence, urinary hesitancy, urinary urgency, vaginal discharge, vaginal dryness, vaginal odor or vaginal pruritus Musc Musc: Denies arthralgias, back pain or muscle weakness Skin Skin/Breast: Denies alopecia, change in hair, dry skin, breast mass, breast pain, breast skin changes or nipple discharge Neuro Neuro: Reports system reviewed and no additional complaints, except as documented Psych Psych: Reports system reviewed and no additional complaints, except as documented Endo Endo: Denies cold intolerance, excessive sweating, heat intolerance or polydipsia Dejon/Lymph Hematologic/Lymphatic: Denies easy bleeding, Denies easy bruising and Denies lymphadenopathy Exam Const General: cooperative, healthy appearing, comfortable, no acute distress and well developed Orientation: alert HENMT Head: normal to inspection and normocephalic Ears: hearing grossly normal bilaterally and external ears normal Nose: external nose normal and nares normal Face and sinus: normal facial exam Neck Neck: normal visual inspection and no lymphadenopathy Thyroid: thyroid normal Chest Chest palpation & inspection: normal inspection of the chest Resp Effort & Inspection: normal respiratory effort Auscultation: clear to auscultation bilaterally Cardio Rate: regular rate Rhythm: regular rhythm Heart Sounds: S1 normal and S2 normal GI Inspection: normal to inspection and non-distended Palpation: soft and no hepatosplenomegaly Musc Other: gross motor intact no deficits, full bilateral strength Skin General: no rashes or lesions noted Neuro General: patient alert, patient awake, moves all extremities and no focal motor deficits Motor: muscle tone normal throughout Extrem General: normal to inspection and no pedal edema Psych Appearance: grossly normal Mental Status: mental status grossly normal Affect: normal affect Speech and Movement: speech and movement normal Coding Level of Care Code No Charge Diagnoses Dyspareunia due to medical condition in female N94.19 Dysmenorrhea N94.6 Female infertility, unexplained N97.9 Assessment and Plan Assessment and Plan (1) Dyspareunia due to medical condition in female: Status: Acute Comment: stable. estriol cream, PFPT. deep also- recommend laparoscopy consider endometriosis (2) Dysmenorrhea: Status: Acute Comment: suspect endometriosis recommend diagnostic laparoscopy chromotubation. OVA kit ordered, nl supply and quality (3) Female infertility, unexplained: Status: Acute Comment: discussed plan femara x 5 cycles. HSG nl prior to previous . side effects on clomid but open to additional cycles. previous infertility workup negative/borderline male factor. previous conception on clomid. discussed endometriosis possibility. tsh WNL, OVA kit ordered. home SA kit ordered, nl SA results Plan - Dr. Alix Parra MD: After discussing the patient's diagnosis and treatment plan options, patient wishes to proceed with surgical management. I have discussed with the patient the risks, benefits, and alternatives of the procedure which include but are not limited to risks of anesthesia, bleeding, infection, possible damage to bowel, bladder, or surrounding vasculature which could lead to additional surgery to evaluate any complications. Patient agrees to procedure and wishes to proceed. ACOG/uptodate references given for additional information regarding procedure. UPDATE- I have seen the patient and performed any clinically relevant updates to the history and physical exam. Alix Parra MD
[2021-06-01] MEDS: Lactated Ringers 1,000 ML 100 ML IV ×2 (12:20→14:10)
[2021-06-01 12:49] LABS: Absolute Lymphocyte Count 1.79 X10^3/uL (0.83-4.51); Absolute Neutrophil Count 3.5 X10^3/uL (2.0-7.7); Basophil# 0.03 X10^3/uL; Basophil% 0.5 % (0-1); Eosinophil# 0.05 X10^3/uL; Eosinophils% 0.9 % (0-5); Hematocrit 38.6 % (37-47); Hemoglobin 13.6 g/dL (12.0-15.0); Lymphocyte # 1.79 X10^3/ul (0.83-4.51); Lymphocyte % 30.6 % (19-41); Mean Corp Hgb Conc 35.2 g/dL (32-36); Mean Corpuscular Hgb 30.8 pg (27.0-32.0); Mean Corpuscular Volume 87.5 fL (81-99); Mean Platelet Vol. 10.9 fl (6.2-12.0); Monocyte# 0.47 X10^3/uL; NRBC Flagged by Analyzer 0 % (0-5); Neutrophil % 59.8 % (47-70); Platelet Count 153 K/mm3 (150-450); RBC Distribution Width CV 11.9 % (11.6-14.6); RBC Distribution Width SD 38.3 fl (35.1-43.9); Red Blood Count 4.41 M/mm3 (4.2-5.4); White Blood Count 5.9 K/mm3 (4.4-11.0)
[2021-06-01 12:59] LABS: International Normalized Ratio 1.1; Partial Thromboplast Time 27.4 Seconds (24.1-36.2); Prothrombin Time (Protime)PT. 13.1 SECONDS (11.7-14.9)
[2021-06-01 13:07] LABS: AST(SGOT) 15 U/L (15-37); Alanine Aminotransfer ALT/SGPT 18 U/L (13-56); Albumin, Serum 4.5 g/dL (3.2-5.0); Alkaline Phosphatase 43 U/L (45-117); Bilirubin, Direct 0.25 mg/dL (0.00-0.30); Globulin 3.8 g/dL (2.2-4.2); Protein, Total 8.3 g/dL (6.4-8.2)
[2021-06-01 13:12] LABS: Internal QC Validated? YES +Cl - CLEAR BKGD; Pregnancy, Urine Negative Negative
[2021-06-01] MEDS: Bupivacaine 0.25% 30 ML Vial (14:10)
--- NOTE | 2021-06-01 14:28 | PCM.OPRPT ---
Problems Associated Problem List Diagnoses (1) Dysmenorrhea: (2) Female infertility, unexplained: (3) Dyspareunia due to medical condition in female: (4) Endometriosis: Report of Operation Pre-Operative Diagnosis: see problem list Post-Operative Diagnosis: same Surgery/Procedure Performed:: Diagnostic laparoscopy, chromotubation, ablation of endometriosis Description of Surgical Findings:: nl uterus tubes ovaries with stage I endometriosis 2 small gunpowder burn and plans in the cul-de-sac and left ovarian fossa Type of Anesthesia: General and Local Specimen's removed: tubes Drains: none Estimated Blood Loss (mL): 5 Fluids Replaced: crystalloid Description of Procedure: Patient was taken in the operating room and was placed under general anesthesia was prepped and draped in normal sterile fashion in the dorsal lithotomy position. Bladder was drained of clear urine and SCDs were on preoperatively. Uterus was sounded and a uterine manipulator was placed after dilating. Attention was then paid to the abdominal portion of the procedure and the umbilicus was elevated with towel clamps and injected with Marcaine and after a 5 mm incision was made and the Veress needle was entered into the abdomen confirmed to be intra-abdominal with a low opening pressure of less than 5 mmHg. Abdomen was insufflated with CO2 gas and a 5 mm optical trocar was placed under direct visualization. A 5 mm port LLQ port was placed under direct visualization. Uterus was well visualized and bilateral fallopian tubes identified and bilateral tubes were evaluated and two small implants of endometriosis were seen and ablated with monopolar energy.bilateral chromotubation was performed and mild dilation seen at the end of the tubes and there was a cystic appearance to the fimbria bilaterally. Excellent hemostasis was noted. Liver and upper abdomen were visualized notably within normal limits and no other gross abnormalities were seen in the abdomen. All instruments removed from the abdomen after gas was desufflated. Port sites were closed with 3-0 Monocryl Steri's and op sites were applied. All instruments removed from the vagina and patient was awoken and taken recovery in stable condition. Grafts/Implants Used: none Complications none Admit VTE Documentation VTE Present on Admission: No VTE Mechan Device Prophylaxis: SCD's Multi Select Codes Urinary/Genital Urinary/Genital CPT Codes: 83183 Chromotubation and 41389 Laproscopic ablation endometriosis
--- NOTE | 2021-06-01 14:34 | DCINST_ITS ---
Discharge Instructions Diet Discharge Diet: No restrictions Activity Discharge Activity: Return to Normal Activity, May Not Drive (for 2 weeks or while taking narcotic pain meds.), May Shower and May Take a Tub Bath (in 7 days) May resume sexual activity in: 1 week Weight Bearing Status: Full weight bearing Dressing / Incision Call your doctor if your incision/area has: Continuous Slow Oozing, Sudden Increased Bleeding, Increased Pain/ Swelling, Increased Redness and Foul Smelling Discharge Call your doctor if you observe: Fever of 101 or Higher, Using more than 1 pad per hour, Shortness of breath, Chest pain and Uncontrolled pain Suture Line Care: Avoid Pulling/Pushing and Avoid Pinching/Bending Remove Dressing in: 1 week (if present) Cleanse incision/area with: Soap & Water and Keep Dressing Clean & Dry Follow Up Care When: Call to make an appointment with your doctor for a fu/incision check in 1- 2 weeks. Test Results: Test results from this visit will be discussed in further detail at your follow-up appointment, if applicable. Discharge Plan Admission Primary Reason for Your Visit: laparoscopic treatment endometriosis Attending Provider: Alix Parra Primary Care Provider: Care Physician,Roxana Primary Discharge Orders/Prescriptions Prescriptions: New hydrocodone-acetaminophen 5-325 mg Tablet 1 - 2 tab PO Q6H PRN PRN (Reason: Pain Score 1-5/10) 7 Days Qty: 0 RF: 0 hydrocodone-acetaminophen 5-325 mg tablet 1 tab PO Q6H PRN (Reason: pain) 5 Days Qty: 10 RF: 0 ibuprofen [ibuprofen] 600 MG tablet 600 mg PO Q6H PRN PRN (Reason: pain) Qty: 30 RF: 0 Continued 19 29 mg iron- 1 mg Tablet,Chewable 1 tab PO DAILY RF: 0 Referrals / Follow Up: Care Physician,No Primary [Primary Care Provider] - Disposition Disposition (needs filled in before D/C Order can be placed): Home, Self Care
[2021-06-01] MEDS: HYDROcodone Bitartrate/Apap 5/325 Tablet PO (16:18)
[2021-06-01] MEDS: Ondansetron 4 MG/2 ML Vial IM (17:15)
== END 2021-06-01 18:19 | disposition home or self-care (01) ==
LOC: SDC 11:55 → AC 11:57
PROVIDERS: Anesthesiology; Referring Provider Obstetrics & Gynecology; Visit Provider Obstetrics & Gynecology
PROC: (CPT 49320; principal; 2021-06-01 13:30)
DX: N97.9 Female infertility, unspecified (principal); N94.6 Dysmenorrhea, unspecified; N94.10 Unspecified dyspareunia; N80.9 Endometriosis, unspecified
CPT/HCPCS: 00952; 58350; 58662; 80076; 81025; 85025; 85610; 85730; 86850; 86900; 86901; J7120; J2405; Q9968

== ENCOUNTER 2021-11-05 13:29 | Outpatient (CLI) | payer OTHER, SELFPAY ==
[2021-11-12 16:08] LABS: HPV Reflexed? NOT INDICATED
== END 2021-11-05 23:59 | disposition home or self-care (01) ==
LOC: LABSPEC 11-23 13:29
PROVIDERS: Visit Provider Obstetrics & Gynecology
DX: Z12.4 Encounter for screening for malignant neoplasm of cervix (principal)
CPT/HCPCS: 88175; G0145

== ENCOUNTER → 2022-11-10 | Outpatient (CLI) | payer OTHER, MEDICAID, SELFPAY ==
[2022-11-10 10:00] LABS: Thyroid Stim Hormone (TSH) 2.54 uIU/mL (0.358-3.74)
== END | disposition home or self-care (01) ==
LOC: PAVLAB 09:13
PROVIDERS: Referring Provider Obstetrics & Gynecology; Visit Provider Obstetrics & Gynecology
DX: R61 Generalized hyperhidrosis (principal)
CPT/HCPCS: 36415; 84443

== ENCOUNTER → 2024-12-02 | Outpatient (CLI) | payer OTHER, SELFPAY ==
[2024-12-04 10:08] LABS: HPV APTIMA, High Risk Negative (Negative)
== END | disposition home or self-care (01) ==
LOC: BWCLAB 09:41 → LABSPEC 09:42
PROVIDERS: Visit Provider Obstetrics & Gynecology
DX: Z12.4 Encounter for screening for malignant neoplasm of cervix (principal)
CPT/HCPCS: 87624; 88175; G0145